=== PATIENT | male | born 1930 | race Caucasian/White ===

== ENCOUNTER → 2016-12-09 | Outpatient (CLI) | payer OTHER, MEDICARE ==
[~2016-12-09] MED LIST: ALFUZOSIN HYDRO10 MG PO; GOOD NEIGHBOR P20 M1 PO; LEVAQUIN500 MG PO; METHADONE 10 MG10 MG PO; PREDNISONE 20MG20 MG PO; SUCRALFATE 1GM T1 GM NG; ZESTRIL 20MG TA20 MG NG; ZITHROMAX 250M250 MG PO; ZITHROMAX Z PA250 MG PO
--- NOTE | 2016-12-09 12:21 | RADIOLOGY REPORT PS360 ---
UGI SERIES W/ AIR HISTORY: GERD ORDERING PHYSICIAN: DILAN ALVAREZ PATIENT AGE: 86 years COMPARISON: None FINDINGS: There is a small hiatal hernia which does not reduce during the course of exam. Surgical clips are present about the GE junction. The reflux was noted. No annular constricting lesion of the esophagus evident. No ulcer or mass apparent of the stomach. The antrum of the stomach is somewhat prominent. The duodenal sweep is also somewhat prominent. Decreased peristalsis noted at the antrum and duodenum. No duodenal bulb ulcer or mass. FLUOROSCOPY TIME : 2 minutes and 7 seconds. IMPRESSION: 1. Small hiatal hernia with GE reflux 2. No ulcer or mass evident. 3. Mild prominence of the antrum stomach and duodenum some decrease in peristalsis. This is of questionable clinical significance.
== END ==
LOC: RAD 12-02 11:00
DX: K21.9 Gastro-esophageal reflux disease without esophagitis (principal)

== ENCOUNTER 2017-06-09 20:47 | Emergency (ER) | payer OTHER, MEDICARE ==
[~2017-06-09] VITALS: Ht 172.7 cm; Wt 58.5 kg
[~2017-06-09 20:47] MED LIST changes: +BISOPROLOL 5MG T5 MG PO; +HYDROXYZINE HCL25 M1 PO; +LASIX20 MG PO; +TESSALON PERLE100 MG PO; +ZOFRAN ODT4 MG PO
--- NOTE | 2017-06-09 21:27 | Urgent Treatment Center Report ---
History of Present Issue Date/Time Seen by Provider 06/09/177 Visit Reason Pt arrived:Walked Presenting Problem:PT IS C/O COUGH FOR A COUPLE WEEKS Location if Accident: Onset of symptoms date/time:/ or onset unknown for:MEDICAL HX UNKNOWN Have you (or family members/close friends) recently traveled outside the [place]? N If Yes, where/when: Have you had exposure to infectious disease within the past month? TB? Other? Specify: Patient state that he has not been feeling well for several days State that he has had cough and congestion States that his throat is sore, nose is congested States that symptoms have continued to get worse over the last couple of weeks so he didn't want to wait until he had pneumonia so he came in to get checked ALLERGIES Coded Allergies: Penicillins (Mild, I-RASH 12/15/16) Home Medications Active Scripts Ondansetron (Zofran 4MG Odt) 4 MG PO Q6HP PRN NAUSEA AND VOMITING #20 TAB Prov: 03/23/17 BENZONATATE (Benzonatate) 100 MG PO TID #15 CAP Prov: 05/04/17 BISOPROLOL FUMARATE (Bisoprolol 5MG) 5 MG PO DAILY #30 TAB Prov: 02/15/17 Furosemide (Lasix) 20 MG PO DAILY #6 TAB Prov: 02/28/17 HYDROXYZINE HCL (Hydroxyzine HCl) 25 MG PO QHSP PRN sleep #5 CAP Prov: 05/13/17 Reported Medications Lisinopril (Zestril 20MG Tab) 20 MG NG DAILY ALFUZOSIN HCL (Alfuzosin HCl ER) 10 MG PO DAILY Methadone Hcl (Methadone) 10 MG PO TID Omeprazole 20 MG PO DAILY Sucralfate (Sucralfate 1GM Tablet) 1 GM NG ACHS History Medical History General CAD? No Angina: No [place]: Yes Hypertension? Yes Hyperlipidemia? Yes CHF? Yes DVT? No PE? No COPD? Yes Asthma? Yes Anemia? No GERD? Yes Gastric ulcers? Yes GI Bleed? No Hernia? No Thyroid Problems? No Hypothyroidism? No CVA? No Seizures? No Diabetes? No Renal Insuffiency? No UTI? No Stones? No BPH? Yes GB Disease: Yes Nephritic Syndrome? No Asplenia? No Hepatitis? No Sickle Cell Disease? No Arthritis? No Migraines? No Cataracts? Yes Glaucoma? No MRSA? No HIV? No TB? No Anxiety? No Depression? Yes Cancer? No More? No Immunization HX DT/Tetanus Unknown Flu Refused Pneumonia Refuses Surgical Hx Previous Surgery?Y GALLBLADDER TURP STOMACH CYST REMOVED FROM AXILLAR Family History Family HX Diabetes No CAD Yes Hypertension Yes Hyperlipidemia Yes Cancer No TB No Social History Smoking Hx Smoker: Current Every Day Smoker Tobacco: Yes Type Cigarettes Packs/day < 1 Pack Alcohol Alcohol: No Review of Systems All Other Systems Reviewed and Negative ENT nose discharge, nose congestion, throat pain, throat swelling. Respiratory cough Physical Exam Vital Signs Vital Signs Date Time Temp Pulse Resp B/P Pulse O2 O2 Flow FiO2 Ox Delivery Rate 06/09 2054 97.9 70 20 138/77 98 General Appearance normal appearance, WD/WN, no apparent distress Ear, Nose, Throat sinus pain/drainage, nasal congestion, throat irritated, slightly red Respiratory Status Yes: trachea midline, chest symmetrical. No: respiratory distress. 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 No Results/Orders Orders Procedure Date/time Status CHEST(2 VIEWS-NOT PORTABLE) 06/09 2101 Active XRAY/CT/US XRAY/CT/US XRAY chest XR interpretation by reviewed by me Xray Results no infiltrates, no acute changes Progress [facility] Progress Notes Date 06/09/17 Time 2203 Comment Consulted with pharmacy (Alex) about medication to treat upper respiratory infection and agreed Azithromycin Departure Departure Time of Disposition 2149 Disposition DC Home or Self Care(routine) Clinical Impression Primary Impression: Upper respiratory infection Qualifiers: URI type: unspecified URI Qualified Code: J06.9 - Acute upper respiratory infection, unspecified Condition STABLE Referrals Eugene VÁZQUEZ,Kike Nunes (Family) Patient Instructions Cough, DI for Cough -- Adult Additional Instructions Hard to eat, drink, or sleep with nasal congestion so important to keep nose cleaned out. * Monitor Temp. Tylenol and/or Ibuprofen as needed. ER if fever is no less than 101 despite alternating Tylenol and Ibuprofen * Encourage fluids, water, Gatorade, powerade, pedialyte if /toddler/or child * Warm salt water gargles for throat irritation *Warm fluids *Sore throat lozenges *Sleep elevated *humidifier or vaporizer *Flonase 2 sprays each nostril daily but may take 2-3 days to notice improvement with it Follow up IMMEDIATELY for new or worsening of symptoms OR no noticeable improvement over the next 48-72 hours. 911 immediately for any life threatening symptoms such as chest pain or difficulty breathing Discharge Counseling Counseled pt/family regarding diagnosis, test results, home care, follow up needs Prescriptions Current Visit Scripts Fluticasone Propionate (Flonase 50 Mcg Nasal [place]) 2 SPRAY NA DAILY #1 BOT Azithromycin (Zithromycin (Z-MARYLIN) 250MG Tab) 250 MG PO DAILY #6 TAB TAKE TWO (2) TABLETS ON DAY 1, THEN ONE (1) TABLET DAY #2 THRU #5 at 2205
--- NOTE | 2017-06-09 21:27 | Urgent Treatment Center Report ---
History of Present Issue Date/Time Seen by Provider 06/09/175 Visit Reason Pt arrived:Walked Presenting Problem:PT IS C/O COUGH FOR A COUPLE WEEKS Location if Accident: Onset of symptoms date/time:/ or onset unknown for:MEDICAL HX UNKNOWN Have you (or family members/close friends) recently traveled outside the [place]? N If Yes, where/when: Have you had exposure to infectious disease within the past month? TB? Other? Specify: Patient state that he has not been feeling well for several days State that he has had cough and congestion States that his throat is sore, nose is congested States that symptoms have continued to get worse over the last couple of weeks so he didn't want to wait until he had pneumonia so he came in to get checked ALLERGIES Coded Allergies: Penicillins (Mild, I-RASH 12/15/16) Home Medications Active Scripts Ondansetron (Zofran 4MG Odt) 4 MG PO Q6HP PRN NAUSEA AND VOMITING #20 TAB Prov: 03/23/17 BENZONATATE (Benzonatate) 100 MG PO TID #15 CAP Prov: 05/04/17 BISOPROLOL FUMARATE (Bisoprolol 5MG) 5 MG PO DAILY #30 TAB Prov: 02/15/17 Furosemide (Lasix) 20 MG PO DAILY #6 TAB Prov: 02/28/17 HYDROXYZINE HCL (Hydroxyzine HCl) 25 MG PO QHSP PRN sleep #5 CAP Prov: 05/13/17 Reported Medications Lisinopril (Zestril 20MG Tab) 20 MG NG DAILY ALFUZOSIN HCL (Alfuzosin HCl ER) 10 MG PO DAILY Methadone Hcl (Methadone) 10 MG PO TID Omeprazole 20 MG PO DAILY Sucralfate (Sucralfate 1GM Tablet) 1 GM NG ACHS History Medical History General CAD? No Angina: No CT: Yes Hypertension? Yes Hyperlipidemia? Yes CHF? Yes DVT? No PE? No COPD? Yes Asthma? Yes Anemia? No GERD? Yes Gastric ulcers? Yes GI Bleed? No Hernia? No Thyroid Problems? No Hypothyroidism? No CVA? No Seizures? No Diabetes? No Renal Insuffiency? No UTI? No Stones? No BPH? Yes GB Disease: Yes Nephritic Syndrome? No Asplenia? No Hepatitis? No Sickle Cell Disease? No Arthritis? No Migraines? No Cataracts? Yes Glaucoma? No MRSA? No HIV? No TB? No Anxiety? No Depression? Yes Cancer? No More? No Immunization HX DT/Tetanus Unknown Flu Refused Pneumonia Refuses Surgical Hx Previous Surgery?Y GALLBLADDER TURP STOMACH CYST REMOVED FROM AXILLAR Family History Family HX Diabetes No CAD Yes Hypertension Yes Hyperlipidemia Yes Cancer No TB No Social History Smoking Hx Smoker: Current Every Day Smoker Tobacco: Yes Type Cigarettes Packs/day < 1 Pack Alcohol Alcohol: No Review of Systems All Other Systems Reviewed and Negative ENT nose discharge, nose congestion, throat pain, throat swelling. Respiratory cough Physical Exam Vital Signs Vital Signs Date Time Temp Pulse Resp B/P Pulse O2 O2 Flow FiO2 Ox Delivery Rate 06/09 2054 97.9 70 20 138/77 98 General Appearance normal appearance, WD/WN, no apparent distress Ear, Nose, Throat sinus pain/drainage, nasal congestion, throat irritated, slightly red Respiratory Status Yes: trachea midline, chest symmetrical. No: respiratory distress. 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 No Results/Orders Orders Procedure Date/time Status CHEST(2 VIEWS-NOT PORTABLE) 06/09 2101 Active XRAY/CT/US XRAY/CT/US XRAY chest XR interpretation by reviewed by me Xray Results no infiltrates, no acute changes Progress [facility] Progress Notes Date 06/09/17 Time 2203 Comment Consulted with pharmacy (Alex) about medication to treat upper respiratory infection and agreed Azithromycin Departure Departure Time of Disposition 2149 Disposition DC Home or Self Care(routine) Clinical Impression Primary Impression: Upper respiratory infection Qualifiers: URI type: unspecified URI Qualified Code: J06.9 - Acute upper respiratory infection, unspecified Condition STABLE Referrals Eugene VÁZQUEZ,Kike Nunes (Family) Patient Instructions Cough, DI for Cough -- Adult Additional Instructions Hard to eat, drink, or sleep with nasal congestion so important to keep nose cleaned out. * Monitor Temp. Tylenol and/or Ibuprofen as needed. ER if fever is no less than 101 despite alternating Tylenol and Ibuprofen * Encourage fluids, water, Gatorade, powerade, pedialyte if /toddler/or child * Warm salt water gargles for throat irritation *Warm fluids *Sore throat lozenges *Sleep elevated *humidifier or vaporizer *Flonase 2 sprays each nostril daily but may take 2-3 days to notice improvement with it Follow up IMMEDIATELY for new or worsening of symptoms OR no noticeable improvement over the next 48-72 hours. 911 immediately for any life threatening symptoms such as chest pain or difficulty breathing Discharge Counseling Counseled pt/family regarding diagnosis, test results, home care, follow up needs Prescriptions Current Visit Scripts Fluticasone Propionate (Flonase 50 Mcg Nasal [place]) 2 SPRAY NA DAILY #1 BOT Azithromycin (Zithromycin (Z-MARYLIN) 250MG Tab) 250 MG PO DAILY #6 TAB TAKE TWO (2) TABLETS ON DAY 1, THEN ONE (1) TABLET DAY #2 THRU #5 at 2205
--- OUTSIDE RECORDS SUMMARY | 2017-06-09 21:51 | External Medical Summary Rpt ---
Author Author [employer], [employer] Organization [employer] Address Unknown Phone Unavailable Results Natriutietic peptide B [Mass/volume] in Serum or Plasma Observa Value Referen Units Interpr Notes Date tion ce etation Range Natriutie 0 - 100 pg/mL High No May 04 tic 2016 peptide B on in 10:00 PM source [Mass/vol data ume] in Serum or Plasma Lactate [Moles/volume] in Blood Observa Value Referen Units Interpr Notes Date ti ce etation Range Lactate 0.4 - 2.0 mmol/L Normal No May 04 [Moles/vo 2016 lume] in on in 10:00 PM Blood source data CBC W Auto Differential panel in Blood Observa Value Referen Units Interpr Notes Date ti ce etation Range Basophils 0 - 0.2 K/MM3 Normal No May 042016 [#/volume on in 10:00 PM ] in source Blood by data Automated count Basophils 0.1 - 2.0 % Normal No May 042016 leukocyte on in 10:00 PM s in source Blood by data Automated count Eosinophi 0.0 - 0.4 K/mm3 Normal No May 04 ls 2016 [#/volume on in 10:00 PM ] in source Blood by data Automated count Eosinophi 0.1 - % Normal No May 04 ls/100 12.0 2016 leukocyte on in 10:00 PM s in source Blood by data Automated count Granulocy 1.3 - 8.0 K/mm3 Normal No May 04 brit[place] 2016 [#/volume on in 10:00 PM ] in source Blood by data Automated count Granulocy 37.0 - % Normal No May 04 brit[place]/100 80.0 2016 leukocyte on in 10:00 PM s in source Blood by data Automated count Hematocri 42.0 - % Low No May 04 t [Volume 52.0 2016 on in 10:00 PM Fraction] source of Blood data Hemoglobi 14.1 - g/dL Low No May 04 n 18.0 informati 2016 [Mass/vol on in 10:00 PM ume] in source Blood data Lymphocyt 0.7 - 4.5 K/mm3 Normal No May 04 es informati 2016 [#/volume on in 10:00 PM ] in source Unspecifi data ed specimen by Automated count Lymphocyt 10 - 50 % Normal No May 04 es inform2016 [#/volume on in 10:00 PM ] in source Unspecifi data ed specimen by Automated count Erythrocy 27 - 31.2 pg Normal No May 04 te mean inform2016 corpuscul on in 10:00 PM ar source hemoglobi data n [Entitic mass] Erythrocy 31.8 - g/dl Normal No May 04 te mean 35.4 inform2016 corpuscul on in 10:00 PM ar source hemoglobi data n concentra tion [Mass/vol ume] by Automated count Erythrocy 82.2 - fl Normal No May 04 te mean 97.8 inform2016 corpuscul on in 10:00 PM ar volume source [Entitic data volume] by Automated count Monocytes 0.1 - 1.0 K/mm3 Normal No May 04 inform2016 [#/volume on in 10:00 PM ] in source Blood by data Automated count Monocytes 1.7 - 9.3 % Normal No May 04 /2016 leukocyte on in 10:00 PM s in source Blood by data Automated count Platelet 7.4 - fl Low No May 04 mean 10.4 informati 2016 volume on in 10:00 PM [Entitic source volume] data in Blood by Automated count Platelets 142 - 424 K/mm3 Normal No May 04 informati 2016 [#/volume on in 10:00 PM ] in source Blood data Erythrocy 4.6 - 6.2 M/mm3 Low No May 04 britany informati 2016 [#/volume on in 10:00 PM ] in source Amniotic data fluid Erythrocy 11.5 - % Normal No May 04 te 17.5 informati 2016 distribut on in 10:00 PM ion width source [Entitic data volume] by Automated count Leukocyte 4.8 - K/MM3 Normal No May 04 s 10.8 informati 2016 [#/volume on in 10:00 PM ] in source Blood data
--- OUTSIDE RECORDS SUMMARY | 2017-06-09 21:51 | External Medical Summary Rpt ---
Demographics Preferred Language Mosotho Marital Status Unknown Confucianism Affiliation Unknown Race Unknown Ethnic Group Unknown Author Author VICTOR MANUEL Address Unknown Phone victor Immunization No patient found.
--- OUTSIDE RECORDS SUMMARY | 2017-06-09 21:51 | External Medical Summary Rpt ---
Demographics Preferred Language [place] Marital Status Unknown Latter Day Affiliation Unknown Race Unknown Ethnic Group Unknown Author Author VICTOR MANUEL Address Unknown Phone victor Immunization No patient found.
--- OUTSIDE RECORDS SUMMARY | 2017-06-09 21:51 | External Medical Summary Rpt ---
Author Author , VICTOR MANUEL BERNAL Address Unknown Phone victor [email or web address] Purpose Continuity of Care Document - 05-04-2017 through 2016 Problems Code Diagnosis DOS Provider Status F32.9 MAJOR DEPRESSIVE DISORDER, SINGLE EPISODE, UNSPECIFIED G47.00 INSOMNIA, UNSPECIFIED I48.91 UNSPECIFIED ATRIAL FIBRILLATIO N J20.9 ACUTE BRONCHITIS, UNSPECIFIED J44.1 CHRONIC OBSTRUCTIVE PULMONARY DISEASE W (ACUTE) EXACERBATIO N N28.9 DISORDER OF KIDNEY AND URETER, UNSPECIFIED R06.00 DYSPNEA, UNSPECIFIED R10.9 UNSPECIFIED ABDOMINAL PAIN R74.8 ABNORMAL LEVELS OF OTHER SERUM ENZYMES R79.89 OTHER SPECIFIED ABNORMAL FINDINGS OF BLOOD CHEMISTRY Z03.89 ENCNTR FOR OBS FOR OTH SUSPECTED DISEASES AND COND RULED OUT
--- OUTSIDE RECORDS SUMMARY | 2017-06-09 21:51 | External Medical Summary Rpt ---
Author Author , VICTOR MANUEL BERNAL Address Unknown Phone victor [email or web address] Purpose Continuity of Care Document - 05-04-2017 [...]
[2017-06-09] MEDS ORDERED: ZITHROMAX Z PA250 MG PO (22:04)
[2017-06-09] MEDS ORDERED: FLONASE 50 MCG16 GM (22:04)
[2017-06-09 22:06] VITALS: BP 138/77
--- NOTE | 2017-06-10 05:35 | RADIOLOGY REPORT PS360 ---
CHEST(2 VIEWS-NOT PORTABLE) HISTORY: Cough and congestion, smoker CONGESTION ORDERING PHYSICIAN: RONY GARCIA APRN PATIENT AGE: 87 years COMPARISON: 05/04/2017 FINDINGS: No evidence of CHF.. 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 There are scattered parenchymal opacities consistent with pulmonary fibrotic change and scattered pleural plaques. There is a small hiatal hernia.. No acute bony anomalies. IMPRESSION: 1. Overall no change in emphysema with pulmonary fibrosis. 2. No acute finding
== END 2017-06-09 22:07 | disposition home or self-care (01) ==
LOC: UTC 20:47
DX: J06.9 Acute upper respiratory infection, unspecified (principal); Z72.0 Tobacco use; K21.9 Gastro-esophageal reflux disease without esophagitis; J44.9 Chronic obstructive pulmonary disease, unspecified; I10 Essential (primary) hypertension

== ENCOUNTER 2017-08-06 16:24 | Emergency (ER) | payer OTHER, MEDICARE ==
[~2017-08-06] VITALS: Ht 172.7 cm; Wt 54.4 kg
[~2017-08-06 16:24] MED LIST changes: +FLONASE 50 MCG16 GM
--- NOTE | 2017-08-06 16:41 | Emergency Room Report ---
History of Present Illness Time Seen by [id number] Presenting Problem in Triage Pt arrived:Wheelchair Presenting Problem:SON ADVISES PT TOOK MEDICINE THAT CAME IN THE MAIL. MEDICINE WAS NARCAN AND HE USED IT NASALLY TWICE. PT UNAWARE OF WHAT THE MEDICINE WAS. PT ON PAIN MEDICATION ON DAILY BASIS Onset of symptoms date/time:/ or onset unknown for:MEDICAL HX UNKNOWN Treatment Prior to Arrival: [employer] Provided by: Sepsis Risk Assessment: Temp: 98.4 B/P: MAP: Pulse: 63 Resp: 16 Recent fever? N Clinical Suspician of Infection? N Mental Status: 1 - Regular (Normal Baseline) Sepsis Risk:Low Sepsis Risk Have you (or family members/close friends) recently traveled outside the [place]? N If Yes, where/when: Have you had exposure to infectious disease within the past month? N TB? Other? Specify: 87 years old meth[place] the [place] the [place] by mail. He used two inhalers in each nostril then he devloped a skin burning sensation and started shaking, was brought by his son who was under the impression that he is having drug overdose. The patient denies having chest pain abdominal pain nausea vomiting or diarrhea. He is shaking in the bed with no focal deficites. Source patient, RN notes reviewed, family (his son) Exam Limitations no limitations (and his age ), clinical condition ALLERGIES Coded Allergies: Penicillins (Mild, I-RASH 12/15/16) Home Medications Active Scripts Ondansetron (Zofran 4MG Odt) 4 MG PO Q6HP PRN NAUSEA AND VOMITING #20 TAB Prov: 03/23/17 Fluticasone Propionate (Flonase 50 Mcg Nasal [place]) 2 SPRAY NA DAILY #1 BOT Prov: 06/09/17 BENZONATATE (Benzonatate) 100 MG PO TID #15 CAP Prov: 05/04/17 BISOPROLOL FUMARATE (Bisoprolol 5MG) 5 MG PO DAILY #30 TAB Prov: 02/15/17 HYDROXYZINE HCL (Hydroxyzine HCl) 25 MG PO QHSP PRN sleep #5 CAP Prov: 05/13/17 Reported Medications Lisinopril (Zestril 20MG Tab) 20 MG NG DAILY ALFUZOSIN HCL (Alfuzosin HCl ER) 10 MG PO DAILY Methadone Hcl (Methadone) 10 MG PO TID Omeprazole 20 MG PO DAILY Sucralfate (Sucralfate 1GM Tablet) 1 GM NG ACHS History Medical History General CAD? No Angina: No [place]: Yes Hypertension? Yes Hyperlipidemia? Yes CHF? Yes DVT? No PE? No COPD? Yes Asthma? Yes Anemia? No GERD? Yes Gastric ulcers? Yes GI Bleed? No Hernia? No Thyroid Problems? No Hypothyroidism? No CVA? No Seizures? No Diabetes? No Renal Insuffiency? No End Stage Renal Disease? No UTI? No Stones? No BPH? Yes GB Disease: Yes Nephritic Syndrome? No Asplenia? No Hepatitis? No Sickle Cell Disease? No Arthritis? No Migraines? No Cataracts? Yes Glaucoma? No MRSA? No HIV? No TB? No Anxiety? No Depression? Yes Cancer? No More? No Immunization Hx DT/Tetanus Unknown Flu Refused Pneumonia Refuses Surgical Hx Previous Surgery?Y GALLBLADDER TURP STOMACH CYST REMOVED FROM [facility] Family History Family Hx Diabetes No CAD Yes Hypertension Yes Hyperlipidemia Yes Cancer No TB No Social History Smoking Hx Smoker: Current Every Day Smoker Tobacco: Yes Type Cigarettes Packs/day < 1 Pack Alcohol Alcohol: No Review of Systems All Other Systems Reviewed and Negative Constitutional see HPI (shakness) Eyes no symptoms reported ENT no symptoms reported. Respiratory no symptoms reported Cardiovascular no symptoms reported Gastrointestinal no symptoms reported Genitourinary no symptoms reported. Musculoskeletal no symptoms reported Skin no symptoms reported Psychiatric/Neurological no symptoms reported Physical Exam Vital Signs Vital Signs Date Time Temp Pulse Resp B/P Pulse O2 O2 Flow FiO2 Ox Delivery Rate 08/06 1914 102 22 134/76 96 08/06 1808 65 14 142/70 98 08/06 1657 14 08/06 1626 98.4 63 16 98 General Appearance mild distress Eye Exam - bilateral eye normal exam, bilateral eye PERRL, bilateral eye EOMI Ear, Nose, Throat hearing grossly normal, normal ENT inspection Neck normal inspection, non-tender, supple, full range of motion Respiratory Status Yes: trachea midline, chest symmetrical, non tender chest. No: respiratory distress. Lung Sounds bilateral: normal breath sounds, lungs clear. Cardiovascular normal exam, regular rate/rhythm, no peripheral edema, no gallop, no JVD, no murmur, no rub, normal peripheral pulses Peripheral Pulses Pulses normal Yes Gastrointestinal normal bowel sounds, normal exam, non tender, soft, no organomegaly Back normal inspection, no CVA tenderness, no vertebral tenderness Extremities non-tender, normal range of motion, normal inspection Male Genitalia normal genitalia, normal prostate, no hernia Neurologic alert, gas tender II-XII nml as tested, normal exam, oriented x 3 Skin intact, normal color, warm/dry Lymphatic no adenopathy Medical Decision Making LABS/Meds/Orders Pt receiving controlled substance in ED? No Results/Orders Laboratory Tests 08/06/17 1800: Opiates Screen NEGATIVE, Urine Methadone Screen NEGATIVE, Barbiturates NEGATIVE, Phencyclidine Screen NEGATIVE, Amphetamines Screen NEGATIVE, Benzodiazepines Screen NEGATIVE, Cocaine Screen NEGATIVE, Marijuana (THC) Screen NEGATIVE 08/06/17 1640: ABG pH 7.54 H, ABG pCO2 (Temp Corrct 24.5 L, ABG pO2 (Temp Correct 58.3 L, ABG HCO3 20.6 L, ABG Total CO2 21.3 L, ABG O2 Sat (Calculated) 93.4, ABG Base Excess -1.9, Brooks Test ACCEPTABLE, Blood Gas Comments RIGHT RADIAL, Sodium 139, Potassium 4.0, Chloride 105, Carbon Dioxide 28, BUN 23 H, Creatinine 1.4 H, Estimated Creat Clear 30 L, Estimated GFR (MDRD) 48, Glucose 148 H, Calcium 8.9, Total Bilirubin 0.4, AST 11 L, ALT 12, Alkaline Phosphatase 110, Creatine Kinase 45, CK-MB (CK-2) Rel Index 2.2, CK and CKMB Interp 1.0, Troponin I < 0.02 , Total Protein 8.0, Albumin 3.8, Globulin 4.2 H, Albumin/Globulin Ratio 0.9 L , WBC 5.3, RBC 4.28 L, Hgb 13.1 L, Hct 39.4 L, MCV 92.0, RDW 13.3, Plt Count 205, MPV 7.8, Gran % 68.7, Gran # 3.7, Lymphocytes % 21.4, Monocytes % 6.7, Eosinophils % 2.3, Basophils % 0.8, Lymphocytes # 1.1, Monocytes # 0.4, Eosinophils # 0.1, Basophils # 0.0, PUBS MCHC 33.1, MCH 30.5, Salicylates 3.0, Acetaminophen 0 L, Alcohols 0 Current Medication Orders Sig/Harshad Start time Last Medication Dose Route Stop Time Status Admin Morphine Sulfate 2 MG [id number] PRN 10/12 1700 AC 08/06 IV 1657 Sodium Chloride 1,000 ML [id number] 08/06 1700 DC 08/06 IV 08/06 1800 1657 Sodium Chloride 10 ML PRN PRN 08/06 1700 AC IV 08/07 1648 Orders Procedure Date/time Status [id number] FAT/LO CHO/HERBER 08/06 D Active OP COURTSEY MEAL 08/06 1812 Active ARTERIAL BLOOD GAS REQUEST 08/06 1631 Active 12 LEAD EKG-BESSON (INITIAL) 08/06 1628 Active ELECTROCARDIOGRAM REQUEST 08/06 1628 Active SALICYLATE 08/06 1628 Complete DRUG ABUSE SCREEN (10) 08/06 1628 Complete CBC WITH AUTO DIFF 08/06 1628 Complete CARDIAC ENZYMES 08/06 162 Complete CHEM 12 PROFILE 08/06 1628 Complete ALCOHOL 08/06 1628 Complete Acetaminophen 08/06 1628 Complete CM/EKG CM/EKG EKG sinus tachycardia 125 minutes baseline artifact nonspecific T-wave changes no acute findings Departure Departure Time of Disposition 1757 Disposition DC Home or Self Care(routine) Clinical Impression Primary Impression: Opiate withdrawal Secondary Impressions: COPD (chronic obstructive pulmonary disease), Misuse of drugs Condition STABLE Referrals Eugene VÁZQUEZ,Kike Nunes (Family) Additional Instructions The patien felt better and stopped shaking after 2 mg of morphine. He recieved 1 liter of IVF and urinated. He tolerated po intake. The patient was made aware that we do not have methadon in the hospital he had his 3 o clock dose and gave it to himself with no side effects. He was stable during his ED stay his case was discussed with Dr. Nunes who felt that he is stable enough to go home and continue his methadon at home. I discussed with his son to observe him and return is needed. The son verbalized understanding. Discharge Counseling Counseled pt/family regarding diagnosis, test results, home care, follow up needs ED Critical Care Critical Care No If Critical Care minutes are documented, the time involved in the performance of seperately reportable procedures was not counted toward critical care time documented. I directly delivered medical care to this critically ill and/or injured patient. Timely evaluation and treatment was necessary to address the significant organ system(s) dysfunction present in this patient. at 1919
[2017-08-06 16:50] LABS: ARTERIAL ABE -1.9 MMOL/L (-2.4-+2.3); ARTERIAL PO2 58.3 MMHG (80-100); ARTERIAL TCO2 21.3 MMOL/L (23-27)
[2017-08-06 16:51] LABS: ALLEN'S TEST ACCEPTABLE; OXYGEN ROOM AIR
[2017-08-06 17:03] LABS: LYMPH # 1.1 K/mm3 (0.7-4.5); LYMPH % 21.4 % (10-50)
[2017-08-06 17:10] LABS: HEMOGLOBIN 13.1 g/dL (14.1-18.0)
[2017-08-06 17:33] LABS: BUN 23 mg/dL (7-18)
[2017-08-06 17:35] LABS: GFR (ESTIMATED) 48 ML/MIN (>60)
[2017-08-06 18:42] LABS: AMPHETAMINES/METAMPHETAMINES NEGATIVE ng/mL (<1000)
[2017-08-06 20:01] VITALS: BP 134/76
--- OUTSIDE RECORDS SUMMARY | 2017-08-08 17:46 | External Medical Summary Rpt | CCD ---
Author Author VICTOR MANUEL Address Unknown Phone victor Purpose Continuity of Care Document - 05-04-2017 through 2016
--- OUTSIDE RECORDS SUMMARY | 2017-08-08 17:46 | External Medical Summary Rpt | CCD ---
Demographics Preferred Language [place] Marital Status Unknown Orthodoxy Affiliation Unknown Race Unknown Ethnic Group Unknown Author Author , DOLORES BERNAL Address Unknown Phone Immunization No patient found.
--- OUTSIDE RECORDS SUMMARY | 2017-08-08 17:46 | External Medical Summary Rpt ---
Author Author DOLORES Nolasco, [employer] Organization [employer] Address Unknown Phone Unavailable Results Fibrin D-dimer FEU [Mass/volume] in Platelet poor plasma Observa Value Referen Units Interpr Notes Date tion ce etation Range Fibrin 0 - 400 ng/mL High Jun 16 D-dimer alert NOTIFICAT 2017 5:35 FEU ION PM [Mass/vol RESULT ume] in The Platelet D-Dimer poor values plasma are presented in units of mass(ng/m L) ofD-Dimer units(DDU ).This test has been FDA approved as an aid in the assessmen tand evaluatio n of suspected DIC, and thromboem bolic eventsinc luding PE and DVT. However, it does not have approvalf or cut-off values for the exclusion of these condition s. Natriutietic peptide B [Mass/volume] in Serum or Plasma Observa Value Referen Units Interpr Notes Date tion ce etation Range Natriutie 0 - 100 pg/mL High No Jun 16 tic informati 2016 5:35 peptide B on in PM source [Mass/vol data ume] in Serum or Plasma CBC W Auto Differential panel in Blood Observa Value Referen Units Interpr Notes Date tion ce etation Range Basophils 0 - 0.2 K/MM3 Normal No Jun 16 informati 2016 5:35 [#/volume on in PM ] in source Blood by data Automated count Basophils 0.1 - 2.0 % Normal No Jun 16 informati 2016 5:35 leukocyte on in PM s in source Blood by data Automated count Eosinophi 0.0 - 0.4 K/mm3 Normal No Jun 16 ls informati 2016 5:35 [#/volume on in PM ] in source Blood by data Automated count Eosinophi 0.1 - % Normal No Jun 16 ls/100 12.0 informati 2016 5:35 leukocyte on in PM s in source Blood by data Automated count Granulocy 1.3 - 8.0 K/mm3 Normal No Jun 16 britany informati 2016 5:35 [#/volume on in PM ] in source Blood by data Automated count Granulocy 37.0 - % Normal No Jun 16 britany/100 80.0 informati 2016 5:35 leukocyte on in PM s in source Blood by data Automated count Hematocri 42.0 - % Low No Jun 16 t [Volume 52.0 ati 2016 5:35 on in PM Fraction] source of Blood data Hemoglobi 14.1 - g/dL Low No Jun 16 n 18.0 informati 2016 5:35 [Mass/vol on in PM ume] in source Blood data Lymphocyt 0.7 - 4.5 K/mm3 Normal No Jun 16 es informati 2017 5:35 [#/volume on in PM ] in source Unspecifi data ed specimen by Automated count Lymphocyt 10 - 50 % Normal No Jun 16 informati 2016 5:35 [#/volume on in PM ] in source Unspecifi data ed specimen by Automated count Erythrocy 27 - 31.2 pg Normal No Jun 16 te mean informati 2016 5:35 corpuscul on in PM ar source hemoglobi data n [Entitic mass] Erythrocy 31.8 - g/dl Normal No Jun 16 te mean 35.4 informati 2016 5:35 corpuscul on in PM ar source hemoglobi data n concentra tion [Mass/vol ume] by Automated count Erythrocy 82.2 - fl Normal No Jun 16 te mean 97.8 informati 2016 5:35 corpuscul on in PM ar volume source [Entitic data volume] by Automated count Monocytes 0.1 - 1.0 K/mm3 Normal No Jun 16 informati 2016 5:35 [#/volume on in PM ] in source Blood by data Automated count Monocytes 1.7 - 9.3 % Normal No Jun 16 /100 informati 2016 5:35 leukocyte on in PM s in source Blood by data Automated count Platelet 7.4 - fl Normal No Jun 16 mean 10.4 informati 2016 5:35 volume on in PM [Entitic source volume] data in Blood by Automated count Platelets 142 - 424 K/mm3 Normal No Jun 16 informati 2016 5:35 [#/volume on in PM ] in source Blood data Erythrocy 4.6 - 6.2 M/mm3 Low No Jun 16 britany informati 2016 5:35 [#/volume on in PM ] in source Amniotic data fluid Erythrocy 11.5 - % Normal No Jun 16 te 17.5 informati 2016 5:35 distribut on in PM ion width source [Entitic data volume] by Automated count Leukocyte 4.8 - K/MM3 Normal No Jun 16 s 10.8 inform2016 5:35 [#/volume on in PM ] in source Blood data Natriutietic peptide B [Mass/volume] in Serum or Plasma Observa Value Referen Units Interpr Notes Date tion ce etation Range Natriutie 0 - 100 pg/mL High No May 04 tic 2016 peptide B on in 10:00 PM source [Mass/vol data ume] in Serum or Plasma Lactate [Moles/volume] in Blood Observa Value Referen Units Interpr Notes Date tion ce etation Range Lactate 0.4 - 2.0 [...] 50 % Normal No May 04 es informati 2016 [...] Normal No May 04 te mean 97.8 informati 2016 corpuscul on in 10:00 PM ar volume source [Entitic data volume] by Automated count Monocytes 0.1 - 1.0 K/mm3 Normal No May 04 informati 2016 [...]
--- OUTSIDE RECORDS SUMMARY | 2017-08-08 17:46 | External Medical Summary Rpt | CCD ---
Author Author VICTOR MANUEL Address Unknown Phone victor [email or web address] Purpose Continuity of Care Document - 05-04-2017 through 2016
--- OUTSIDE RECORDS SUMMARY | 2017-08-08 17:46 | External Medical Summary Rpt ---
[...] - 8.0 K/mm3 Normal No May 04 britayn 2016 [#/volume on in 10:00 PM ] [...]
--- OUTSIDE RECORDS SUMMARY | 2017-08-08 17:46 | External Medical Summary Rpt | CCD ---
Demographics Preferred Language [place] Marital Status Unknown Orthodoxy Affiliation Unknown Race Unknown Ethnic Group Unknown Author Author , DOLORES BERNAL Address Unknown Phone Immunization No patient found.
== END 2017-08-06 20:02 | disposition home or self-care (01) ==
LOC: ER 16:24
PROVIDERS: Emergency Medicine
DX: F11.23 Opioid dependence with withdrawal (principal); T40.0X1A Poisoning by opium, accidental (unintentional), initial encounter; Y92.019 Unspecified place in single-family (private) house as the place of occurrence of the external cause; J44.9 Chronic obstructive pulmonary disease, unspecified; Z72.0 Tobacco use; K21.9 Gastro-esophageal reflux disease without esophagitis; I10 Essential (primary) hypertension; I50.9 Heart failure, unspecified; Z88.0 Allergy status to penicillin

== ENCOUNTER 2017-08-08 13:56 | Emergency (ER) | payer OTHER, MEDICARE ==
[~2017-08-08] VITALS: Ht 172.7 cm; Wt 54.4 kg
--- NOTE | 2017-08-08 14:52 | Urgent Treatment Center Report ---
History of Present Issue Date/Time Seen by Provider 08/08/17 4196 Visit Reason Pt arrived:Walked Presenting Problem:PT C/O FEELING NAUSEATED. HE ADVISES HE ACCIDENTALLY NARCANNED HIMSELD ON THURSDAY Location if Accident: Onset of symptoms date/time:/ or onset unknown for:MEDICAL HX UNKNOWN Have you (or family members/close friends) recently traveled outside the [place]? N If Yes, where/when: Have you had exposure to infectious disease within the past month? TB? Other? Specify: Source patient, family Exam Limitations no limitations Comment 87-year-old male presents with complaints of nausea and soreness in his chest. Patient states on [facility] and afterwards became very ill and was taken to the ER by family. Patient states he's been on methadone for over 15 years for chronic pain. Patient states he might have also taken an extra lisinopril because he forgot he took his other lisinopril this morning but not sure if he took it or not. ALLERGIES Coded Allergies: Penicillins (Mild, I-RASH 12/15/16) Home Medications Active Scripts Ondansetron (Zofran 4MG Odt) 4 MG PO Q6HP PRN NAUSEA AND VOMITING #20 TAB Prov: 03/23/17 Fluticasone Propionate (Flonase 50 Mcg Nasal [place]) 2 SPRAY NA DAILY #1 BOT Prov: 06/09/17 BENZONATATE (Benzonatate) 100 MG PO TID #15 CAP Prov: 05/04/17 BISOPROLOL FUMARATE (Bisoprolol 5MG) 5 MG PO DAILY #30 TAB Prov: 02/15/17 HYDROXYZINE HCL (Hydroxyzine HCl) 25 MG PO QHSP PRN sleep #5 CAP Prov: 05/13/17 Reported Medications Lisinopril (Zestril 20MG Tab) 20 MG NG DAILY ALFUZOSIN HCL (Alfuzosin HCl ER) 10 MG PO DAILY Methadone Hcl (Methadone) 10 MG PO TID Omeprazole 20 MG PO DAILY Sucralfate (Sucralfate 1GM Tablet) 1 GM NG ACHS History Medical History General CAD? No Angina: No [place]: Yes Hypertension? Yes Hyperlipidemia? Yes CHF? Yes DVT? No PE? No COPD? Yes Asthma? Yes Anemia? No GERD? Yes Gastric ulcers? Yes GI Bleed? No Hernia? No Thyroid Problems? No Hypothyroidism? No CVA? No Seizures? No Diabetes? No Renal Insuffiency? No UTI? No Stones? No BPH? Yes GB Disease: Yes Nephritic Syndrome? No Asplenia? No Hepatitis? No Sickle Cell Disease? No Arthritis? No Migraines? No Cataracts? Yes Glaucoma? No MRSA? No HIV? No TB? No Anxiety? No Depression? Yes Cancer? No More? No Immunization HX DT/Tetanus Unknown Flu Refused Pneumonia Refuses Surgical Hx Previous Surgery?Y GALLBLADDER TURP STOMACH CYST REMOVED FROM [facility] Family History Family HX Diabetes No CAD Yes Hypertension Yes Hyperlipidemia Yes Cancer No TB No Social History Smoking Hx Smoker: Current Every Day Smoker Tobacco: Yes Type Cigarettes Packs/day < 1 Pack Alcohol Alcohol: No Review of Systems All Other Systems Reviewed and Negative Gastrointestinal see HPI, nausea Genitourinary see HPI. Physical Exam Vital Signs Vital Signs Date Time Temp Pulse Resp B/P Pulse O2 O2 Flow FiO2 Ox Delivery Rate 08/08 1413 98.4 65 16 117/70 98 - WBC >12,000 or <4,000 or 10% bands? 2 or more SIRS Criteria Met? B/P:140/74 MAP:96 Creatinine >2.0? UA output<0.5ml/kg/hr for 2 hrs? Platelet count >100,000? Lactate >2.0mmol/1? INR >1.2 or PTT > than 60 sec? Evidence of Organ Dysfunction? Provider documented clinical suspician of infection? Sepsis Criteria Count: 0 Sepsis Risk: General Appearance normal appearance, no apparent distress Eye Exam - bilateral eye normal exam, bilateral eye PERRL, bilateral eye EOMI Ear, Nose, Throat hearing grossly normal, normal ENT inspection, normal pharynx Neck normal inspection, full range of motion, limited range of motion Respiratory Status Yes: trachea midline, chest symmetrical. No: respiratory distress. Lung Sounds bilateral: normal breath sounds, lungs clear. Cardiovascular normal exam, regular rate/rhythm Peripheral Pulses Pulses normal Yes Gastrointestinal normal bowel sounds, non tender, soft, no guarding, no rebound Neurologic alert, normal exam, oriented x 3 Medical Decision Making LABS/Meds/Orders Pt receiving controlled substance in ED? No Results/Orders Laboratory Tests 08/08/17 1530: Sodium 140, Potassium 4.0, Chloride 107, Carbon Dioxide 30, BUN 32 H, Creatinine 1.4 H, Estimated Creat Clear 30 L, Estimated GFR (MDRD) 48, Glucose 159 H, Calcium 8.2 L, Total Bilirubin 0.3, AST 14 L, ALT 10 L, Alkaline Phosphatase 85, Creatine Kinase 55, CK-MB (CK-2) Rel Index 2.0, CK and CKMB Interp 1.1, Troponin I < 0.02, Total Protein 6.8, Albumin 3.1 L, Globulin 3.7 H, Albumin/Globulin Ratio 0.8 L, WBC 5.2, RBC 3.66 L, Hgb 11.1 L, Hct 34.8 L , MCV 95.2, RDW 13.4, Plt Count 203, MPV 8.1, Gran % 73.3, Gran # 3.8, Lymphocytes % 17.5, Monocytes % 5.5, Eosinophils % 2.8, Basophils % 0.9, Lymphocytes # 0.9, Monocytes # 0.3, Eosinophils # 0.2, Basophils # 0.1, PUBS MCHC 32.1, MCH 30.5 Orders Procedure Date/time Status 12 LEAD EKG-BESSON (INITIAL) 08/08 1445 Active ELECTROCARDIOGRAM REQUEST 08/08 1445 Active CBC WITH AUTO DIFF 08/08 1445 Complete CARDIAC ENZYMES 08/08 1445 Complete CHEM 12 PROFILE 08/08 1445 Complete Progress [facility] Progress Notes Date 08/08/17 Time 1623 Comment Patient has had a soda and [place] while here and was able to keep both Down without nausea Departure Departure Time of Disposition 1624 Disposition DC Home or Self Care(routine) Clinical Impression Primary Impression: Nausea Condition STABLE Referrals Eugene VÁZQUEZ,Kike Nunes (Family) Patient Instructions DI for Nausea -- Adult Additional Instructions Laxmi diet and Advance as tolerated See PCP this week If symptoms worsen or do not improve return or be seen in the ER Discharge Counseling Counseled pt/family regarding diagnosis, test results, medications/RX, home care, follow up needs at [id number]
[2017-08-08 16:07] LABS: LYMPH # 0.9 K/mm3 (0.7-4.5); LYMPH % 17.5 % (10-50)
[2017-08-08 16:09] LABS: HEMOGLOBIN 11.1 g/dL (14.1-18.0)
[2017-08-08 16:17] LABS: BUN 32 mg/dL (7-18); GFR (ESTIMATED) 48 ML/MIN (>60)
[2017-08-08 16:29] VITALS: BP 143/83
--- OUTSIDE RECORDS SUMMARY | 2017-08-09 04:21 | External Medical Summary Rpt | CCD ---
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 OBSTRUCTIVE PULMON DISEASE W ACUTE LOWER RESP INFCT J44.1 CHRONIC OBSTRUCTIVE PULMONARY DISEASE W (ACUTE) EXACERBATIO N J44.9 CHRONIC OBSTRUCTIVE PULMONARY DISEASE, UNSPECIFIED N28.9 DISORDER OF KIDNEY AND URETER, UNSPECIFIED R06.00 DYSPNEA, UNSPECIFIED R07.89 OTHER CHEST PAIN R10.9 UNSPECIFIED ABDOMINAL PAIN R74.8 ABNORMAL LEVELS OF OTHER SERUM ENZYMES R79.89 OTHER SPECIFIED ABNORMAL FINDINGS OF BLOOD CHEMISTRY Z03.89 ENCNTR FOR OBS FOR OTH SUSPECTED DISEASES AND COND RULED OUT Results Labs Lab Lab Date Result Refere Interp Status Commen Order Detail nces retati t Range on Urine 9-analyte drugs of abuse screening (08-06-2017 18:00) Comment: Positive urine drug screen samples are stored for 7 days. Comment: Contact the Lab if confirmation of positives is needed. 11-hydr NEGATIV <50 complet oxy 017 E ed delta-9 18:00 NEGATIV E L tetrahy ng/mL drocann abinol Phencyc = <25 complet lidine 017 NEGATIV ed measure 18:00 E ng/mL ment (mass/v olume) Opiates = <300 complet 017 NEGATIV ed measure 18:00 E ng/mL ment (mass/v olume) Methado = <300 complet ne 017 NEGATIV ed measure 18:00 E ng/mL ment (mass/v olume) Cocaine = <300 complet 017 NEGATIV ed measure 18:00 E ng/g ment (mass/v olume) Serum = 200 complet or 017 NEGATIV ng/mL ed plasma 18:00 E ng/mL benzodi azepine s measure m Urine = <200 complet barbitu 017 NEGATIV ed rates 18:00 E ng/mL measure ment by screen Urine NEGATIV <1000 complet ampheta 017 E ed mine 18:00 NEGATIV screeni E L ng test ng/mL Arterial blood gas (08-06-2017 16:40) Arteria - 1.9 -2.4-+2 complet l blood 017 MMOL/L .3 ed base 16:40 excess determi nation [facility] ACCEPTA complet test 017 BLE ed before 16:40 ACCEPTA arteria BLE L l blood gas Arteria = 20.6 22.0-26 complet l blood 017 MMOL/L .0 ed 16:40 bicarbo jatin measure ment ( Arteria = ROOM complet l blood 017 AIR ed total 16:40 oxygen content yvon Arteria = 24.5 35.0-45 complet l blood 017 MMHG .0 ed 16:40 partial pressur e of carbo Arteria = 7.54 7.35-7. complet l blood 017 MMOL/L 45 ed pH 16:40 measure ment Arteria = 58.3 80-100 complet l whole 017 MMHG ed blood 16:40 PO2 at POC Arteria = 93.4 90-100 complet l blood 017 % ed oxygen 16:40 saturat ion calcula SOURCE RIGHT complet 017 RADIAL ed 16:40 Arteria = 21.3 23-27 complet l blood 017 MMOL/L ed carbon 16:40 dioxide , total greyson CBC w auto diff (08-06-2017 16:40) Blood = 5.3 4.8-10. complet leukocy 017 K/MM3 8 ed britany 16:40 count (number /volume ) Automat = 13.3 11.5-17 complet ed 017 % .5 ed erythro 16:40 cyte distrib ution width Red = 4.28 4.6-6.2 complet blood 017 M/mm3 ed cell 16:40 count Blood = 205 142-424 complet platele 017 K/mm3 ed t count 16:40 Automat = 7.8 7.4-10. complet ed 017 fl 4 ed blood 16:40 platele t mean volume greyson [place] % = 6.7 % 1.7-9.3 complet 017 ed 16:40 Absolut = 0.4 0.1-1.0 complet e 017 K/mm3 ed monocyt 16:40 e count Automat = 92.0 82.2-97 complet ed 017 fl .8 ed erythro 16:40 cyte mean corpusc ular v Automat = 33.1 31.8-35 complet ed 017 g/dl .4 ed erythro 16:40 cyte mean corpusc ular h Mean = 30.5 27-31.2 complet corpusc 017 pg ed ular 16:40 hemoglo bin (MCH) determ Lymphoc = 21.4 10-50 complet yte 017 % ed count, 16:40 blood, automat ed Absolut = 1.1 0.7-4.5 complet e 017 K/mm3 ed lymphoc 16:40 yte count Blood = 13.1 14.1-18 complet hemoglo 017 g/dL .0 ed bin 16:40 measure ment (mass/v olum Blood = 39.4 42.0-52 complet hematoc 017 % .0 ed rit 16:40 (volume fractio n) Granulo = 68.7 37.0-80 complet cyte 017 % .0 ed percent 16:40 age Blood = 3.7 1.3-8.0 complet granulo 017 K/mm3 ed cytes 16:40 automat ed count (numb Automat = 2.3 % 0.1-12. complet ed 017 0 ed blood 16:40 eosinop hils/10 0 leukocy t Automat = 0.1 0.0-0.4 complet ed 017 K/mm3 ed blood 16:40 eosinop hil count Baso % = 0.8 % 0.1-2.0 complet 017 ed 16:40 Automat = 0.0 0-0.2 complet ed 017 K/MM3 ed blood 16:40 basophi l count (count/ vo Salicylate ser/plas (08-06-2017 16:40) Salicyl = 3.0 2.8-20. complet ate 017 mg/dL 0 ed ser/ramona 16:40 s Comprehensive metabolic panel (08-06-2017 16:40) Protein = 8.0 6.4-8.2 complet total 017 gm/dL ed ser/ramona 16:40 s ALT = 12 12-78 complet (SGPT) 017 U/L ed ser/ramona 16:40 s Serum = 11 15-37 complet or 017 U/L ed plasma 16:40 asparta te aminotr ansfera Serum = 139 136-145 complet sodium 017 mmoL/L ed measure 16:40 ment Serum = 4.0 3.5-5.1 complet potassi 017 mmoL/L ed um 16:40 measure ment Serum = 148 74-106 complet or 017 mg/dL ed plasma 16:40 glucose measure ment (mas Serum = 4.2 1.3-3.2 complet globuli 017 gm/dL ed n 16:40 measure ment (mass/v olume) Estimat = 48 >60 complet ed 017 ML/MIN ed glomeru 16:40 lar filtrat ion rate (GF Comment: REFERENCE RANGE: >60 ML/MIN/1.73 SQUARE METERS Comment: If this patient is -[place], then multiply the Comment: result by 1.210. Estimat = 30 50-200 complet ion of 017 ML/MIN ed creatin 16:40 ine renal clearan ce Serum = 1.4 0.70-1. complet or 017 mg/dL 30 ed plasma 16:40 creatin ine measure ment ( Carbon 10-12-2 = 28 21.0-32 complet dioxide 017 mmoL/L .0 ed 16:40 measure ment Serum = 105 98-107 complet or 017 mmoL/L ed plasma 16:40 chlorid e measure ment (mo Serum = 8.9 8.5-10. complet or 017 mg/dL 1 ed plasma 16:40 calcium measure ment (mas Serum = 23 7-18 complet or 017 mg/dL ed plasma 16:40 urea nitroge n measure men Serum = 0.4 0.2-1.0 complet or 017 mg/dL ed plasma 16:40 total bilirub in measure m Serum = 110 46-116 complet or 017 U/L ed plasma 16:40 alkalin e phospha tase greyson Serum = 3.8 3.4-5.0 complet or 017 gm/dL ed plasma 16:40 albumin measure ment (mas Serum = 0.9 1.1-1.8 complet or 017 ed plasma 16:40 albumin /globul in mass ra Cardiac enzymes (08-06-2017 16:40) Serum < 0.02 0.00-0. complet or 017 ng/mL 06 ed plasma 16:40 troponi n i.cardi ac measu Serum = 45 39-308 complet or 017 U/L ed plasma 16:40 creatin e kinase measure m Serum = 1.0 0.0-3.6 complet or 017 ng/mL ed plasma 16:40 creatin e kinase MB measu Serum = 2.2 0-4.0 complet or 017 U/L ed plasma 16:40 creatin e kinase MB (CK-M Serum or plasma ethanol measurement ([facility] (08-06-2017 16:40) Serum = 0 0-99 complet or 017 mg/dL ed plasma 16:40 ethanol measure ment ([facility] Comment: ANY ALCOHOL > OR = 80 MG/DL IS CONSIDERED LEGALLY Comment: INTOXICATED UNDER [facility] LAW. Acetaminophen level (mass/volume) (08-06-2017 16:40) Acetami = 0 10-30 complet nophen 017 ug/mL ed level 16:40 (mass/v olume)
--- OUTSIDE RECORDS SUMMARY | 2017-08-09 04:21 | External Medical Summary Rpt | CCD ---
Author Author , DOLORES Organization DOLORES Address Unknown Phone [email or web address] Purpose Continuity of Care Document - 08-06-2017 [...] blood 16:40 platele t mean volume greyson [place] % = 6.7 % 1.7-9.3 complet 017 [...] SQUARE METERS Comment: If this patient is -Malawian, then multiply the Comment: result by 1.210. [...] MB (CK-M Serum or plasma ethanol measurement ([facility] (08-06-2017 16:40) Serum = 0 0-99 complet or 017 mg/dL ed plasma 16:40 ethanol measure ment ([facility] Comment: ANY ALCOHOL > OR = 80 MG/DL IS CONSIDERED LEGALLY Comment: INTOXICATED UNDER [facility] LAW. Acetaminophen level (mass/volume) (08-06-2017 16:40) Acetami = 0 10-30 complet nophen 017 ug/mL ed level 16:40 (mass/v olume)
--- OUTSIDE RECORDS SUMMARY | 2017-08-09 04:22 | External Medical Summary Rpt | CCD ---
Demographics Preferred Language Icelandic Marital Status Unknown Orthodoxy Affiliation Unknown Race Unknown Ethnic Group Unknown Author Author , DOLORES BERNAL Address Unknown Phone Immunization No patient found.
--- OUTSIDE RECORDS SUMMARY | 2017-08-09 04:22 | External Medical Summary Rpt | CCD ---
Demographics Preferred Language Malay Marital Status Unknown Taoism Affiliation Unknown Race Unknown Ethnic Group Unknown Author Author , DOLORES BERNAL Address Unknown Phone Immunization No patient found.
== END 2017-08-08 16:29 | disposition home or self-care (01) ==
LOC: UTC 13:56
PROVIDERS: Nurse Practitioner Family
DX: R11.0 Nausea (principal); I10 Essential (primary) hypertension; J44.9 Chronic obstructive pulmonary disease, unspecified; K21.9 Gastro-esophageal reflux disease without esophagitis; F17.210 Nicotine dependence, cigarettes, uncomplicated

== ENCOUNTER 2017-08-10 14:58 | Emergency (ER) | payer OTHER, MEDICARE ==
[~2017-08-10] VITALS: Ht 172.7 cm; Wt 59.0 kg
--- OUTSIDE RECORDS SUMMARY | 2017-08-10 15:04 | External Medical Summary Rpt | CCD ---
Demographics Preferred Language Kazakh Marital Status Unknown Faith Affiliation Unknown Race Unknown Ethnic Group Unknown Author Author , DOLORES BERNAL Address Unknown Phone Immunization No patient found.
--- OUTSIDE RECORDS SUMMARY | 2017-08-10 15:04 | External Medical Summary Rpt | CCD ---
Author Author , DOLORES Organization DOLORES Address Unknown Phone [email or web address] Purpose Continuity of Care Document - 05-04-2017 [...] Order Detail nces retati t Range on CBC w auto diff (08-08-2017 15:30) Automat = 0.1 0-0.2 complet ed 017 K/MM3 ed blood 15:30 basophi l count (count/ vo Baso % = 0.9 % 0.1-2.0 complet 017 ed 15:30 Automat = 0.2 0.0-0.4 complet ed 017 K/mm3 ed blood 15:30 eosinop hil count Automat = 2.8 % 0.1-12. complet ed 017 0 ed blood 15:30 eosinop hils/10 0 leukocy t Blood = 3.8 1.3-8.0 complet granulo 017 K/mm3 ed cytes 15:30 automat ed count (numb Granulo = 73.3 37.0-80 complet cyte 017 % .0 ed percent 15:30 age Blood = 34.8 42.0-52 complet hematoc 017 % .0 ed rit 15:30 (volume fractio n) Blood = 11.1 14.1-18 complet hemoglo 017 g/dL .0 ed bin 15:30 measure ment (mass/v olum Absolut = 0.9 0.7-4.5 complet e 017 K/mm3 ed lymphoc 15:30 yte count Lymphoc = 17.5 10-50 complet yte 017 % ed count, 15:30 blood, automat ed Mean = 30.5 27-31.2 complet corpusc 017 pg ed ular 15:30 hemoglo bin (MCH) determ Automat = 32.1 31.8-35 complet ed 017 g/dl .4 ed erythro 15:30 cyte mean corpusc ular h Automat = 95.2 82.2-97 complet ed 017 fl .8 ed erythro 15:30 cyte mean corpusc ular v Absolut = 0.3 0.1-1.0 complet e 017 K/mm3 ed monocyt 15:30 e count Isabella % = 5.5 % 1.7-9.3 complet 017 ed 15:30 Automat = 8.1 7.4-10. complet ed 017 fl 4 ed blood 15:30 platele t mean volume greyson Blood = 203 142-424 complet platele 017 K/mm3 ed t count 15:30 Red = 3.66 4.6-6.2 complet blood 017 M/mm3 ed cell 15:30 count Automat = 13.4 11.5-17 complet ed 017 % .5 ed erythro 15:30 cyte distrib ution width Blood = 5.2 4.8-10. complet leukocy 017 K/MM3 8 ed britany 15:30 count (number /volume ) Comprehensive metabolic panel (08-08-2017 15:30) Protein = 6.8 6.4-8.2 complet total 017 gm/dL ed ser/ramona 15:30 s ALT = 10 12-78 complet (SGPT) 017 U/L ed ser/ramona 15:30 s Serum = 14 15-37 complet or 017 U/L ed plasma 15:30 asparta te aminotr ansfera Serum = 140 136-145 complet sodium 017 mmoL/L ed measure 15:30 ment Serum = 4.0 3.5-5.1 complet potassi 017 mmoL/L ed um 15:30 measure ment Serum = 159 74-106 complet or 017 mg/dL ed plasma 15:30 glucose measure ment (mas Serum = 3.7 1.3-3.2 complet globuli 017 gm/dL ed n 15:30 measure ment (mass/v olume) Estimat = 48 >60 complet ed 017 ML/MIN ed glomeru 15:30 lar filtrat ion rate (GF Comment: REFERENCE RANGE: >60 ML/MIN/1.73 SQUARE METERS Comment: If this patient is -[place], then multiply the Comment: result by 1.210. Estimat = 30 50-200 complet ion of 017 ML/MIN ed creatin 15:30 ine renal clearan ce Serum = 1.4 0.70-1. complet or 017 mg/dL 30 ed plasma 15:30 creatin ine measure ment ( Carbon = 30 21.0-32 complet dioxide 017 mmoL/L .0 ed 15:30 measure ment Serum = 107 98-107 complet or 017 mmoL/L ed plasma 15:30 chlorid e measure ment (mo Serum = 8.2 8.5-10. complet or 017 mg/dL 1 ed plasma 15:30 calcium measure ment (mas Serum = 32 7-18 complet or 017 mg/dL ed plasma 15:30 urea nitroge n measure men Serum = 0.3 0.2-1.0 complet or 017 mg/dL ed plasma 15:30 total bilirub in measure m Serum = 85 46-116 complet or 017 U/L ed plasma 15:30 alkalin e phospha tase greyson Serum = 3.1 3.4-5.0 complet or 017 gm/dL ed plasma 15:30 albumin measure ment (mas Serum = 0.8 1.1-1.8 complet or 017 ed plasma 15:30 albumin /globul in mass ra Cardiac enzymes (08-08-2017 15:30) Serum < 0.02 0.00-0. complet or 017 ng/mL 06 ed plasma 15:30 troponi n i.cardi ac measu Serum = 55 39-308 complet or 017 U/L ed plasma 15:30 creatin e kinase measure m Serum = 1.1 0.0-3.6 complet or 017 ng/mL ed plasma 15:30 creatin e kinase MB measu Serum = 2.0 0-4.0 complet or 017 U/L ed plasma 15:30 creatin e kinase MB (CK-M Urine 9-analyte drugs of abuse screening (08-06-2017 [...] NEGATIV screeni E L ng test ng/mL Drugs identified in Urine by Screen method (08-06-2017 18:00) Ampheta NEGATIV <1000 complet mine 017 E ed [Presen 18:00 ce] in Urine by Screen method 11-Hydr NEGATIV <50 complet oxy 017 E ed delta-9 18:00 tetrahy drocann abinol [Presen ce] in Unspeci fied specime n Arterial blood gas (08-06-2017 16:40) Arteria = 21.3 23-27 complet l blood 017 MMOL/L ed carbon 16:40 dioxide , total greyson SOURCE RIGHT complet 017 RADIAL ed 16:40 Arteria = 93.4 90-100 complet l blood 017 % ed oxygen 16:40 saturat ion calcula Arteria = 58.3 80-100 complet l whole 017 MMHG ed blood 16:40 PO2 at POC Arteria = 7.54 7.35-7. complet l blood 017 MMOL/L 45 ed pH 16:40 measure ment Arteria = 24.5 35.0-45 complet l blood 017 MMHG .0 ed 16:40 partial pressur e of carbo Arteria = ROOM complet l blood 017 AIR ed total 16:40 oxygen content yvon Arteria = 20.6 22.0-26 complet l blood 017 MMOL/L .0 ed 16:40 bicarbo jatin measure ment ( [facility] ACCEPTA complet test 017 BLE ed before 16:40 ACCEPTA arteria BLE L l blood gas Arteria - 1.9 -2.4-+2 complet l blood 017 MMOL/L .3 ed base 16:40 excess determi nation Salicylate ser/plas (08-06-2017 16:40) Salicyl = 3.0 [...] SQUARE METERS Comment: If this patient is -[place], then multiply the Comment: result by 1.210. Estimat = 30 50-200 complet ion of 017 ML/MIN ed creatin 16:40 ine renal clearan ce Serum = 1.4 0.70-1. complet or 017 mg/dL 30 ed plasma 16:40 creatin ine measure ment ( Carbon = 28 21.0-32 complet dioxide 017 mmoL/L [...] MB (CK-M Serum or plasma ethanol measurement (mas (08-06-2017 16:40) Serum = 0 0-99 complet or 017 mg/dL ed plasma 16:40 ethanol measure ment ([facility] Comment: ANY ALCOHOL > OR = 80 MG/DL IS CONSIDERED LEGALLY Comment: INTOXICATED UNDER [place] [facility] LAW. Acetaminophen level (mass/volume) (08-06-2017 16:40) Acetami = 0 10-30 complet nophen 017 ug/mL ed level 16:40 (mass/v olume) CBC w auto diff (08-06-2017 16:40) Blood [...] blood 16:40 platele t mean volume greyson [place] % = 6.7 % 1.7-9.3 complet 017 [...] blood 16:40 basophi l count (count/ vo Gas panel in Arterial blood (08-06-2017 16:40) Arteria ACCEPTA complet l 017 BLE ed patency 16:40 Wrist artery --pre arteria l punctur e SOURCE RIGHT complet 017 RADIAL ed 16:40
--- OUTSIDE RECORDS SUMMARY | 2017-08-10 15:04 | External Medical Summary Rpt | CCD ---
Demographics Preferred Language Uzbek Marital Status Unknown Episcopalian Affiliation Unknown Race Unknown Ethnic Group Unknown Author Author , DOLORES BERNAL Address Unknown Phone Immunization No patient found.
--- OUTSIDE RECORDS SUMMARY | 2017-08-10 15:04 | External Medical Summary Rpt | CCD ---
Author Author , DOLORES Organization DOLORES Address Unknown Phone [email or web address] Purpose Continuity of Care Document - 05-04-2017 [...] 017 K/mm3 ed monocyt 15:30 e count [place] % = 5.5 % 1.7-9.3 complet 017 [...] SQUARE METERS Comment: If this patient is -[place], then multiply the Comment: result by 1.210. [...] SQUARE METERS Comment: If this patient is -[place], then multiply the Comment: result by 1.210. [...] mg/dL ed plasma 16:40 ethanol measure ment ([facility] Comment: ANY ALCOHOL > OR = 80 MG/DL IS CONSIDERED LEGALLY Comment: INTOXICATED UNDER [place] STATE LAW. Acetaminophen level (mass/volume) (08-06-2017 16:40) [...] blood 16:40 platele t mean volume greyson [place] % = 6.7 % 1.7-9.3 complet 017 [...]
--- OUTSIDE RECORDS SUMMARY | 2017-08-10 15:05 | External Medical Summary Rpt ---
Author Author ZACDARLIN Nolasco, [employer] Organization [employer] Address Unknown Phone Unavailable Results CBC W Auto Differential panel in Blood Observa Value Referen Units Interpr Notes Date tion ce etation Range Basophils 0 - 0.2 K/MM3 Normal No Aug 08 informati 2016 3:30 [#/volume on in PM ] in source Blood by data Automated count Basophils 0.1 - 2.0 % Normal No Aug 08 / informati 2016 3:30 leukocyte on in PM s in source Blood by data Automated count Eosinophi 0.0 - 0.4 K/mm3 Normal No Aug 08 ls informati 2016 3:30 [#/volume on in PM ] in source Blood by data Automated count Eosinophi 0.1 - % Normal No Aug 08 ls/100 12.0 informati 2016 3:30 leukocyte on in PM s in source Blood by data Automated count Granulocy 1.3 - 8.0 K/mm3 Normal No Aug 08 britany informati 2016 3:30 [#/volume on in PM ] in source Blood by data Automated count Granulocy 37.0 - % Normal No Aug 08 britany/100 80.0 informati 2016 3:30 leukocyte on in PM s in source Blood by data Automated count Hematocri 42.0 - % Low No Aug 08 t [Volume 52.0 informati 2016 3:30 on in PM Fraction] source of Blood data Hemoglobi 14.1 - g/dL Low No Aug 08 n 18.0 informati 2016 3:30 [Mass/vol on in PM ume] in source Blood data Lymphocyt 0.7 - 4.5 K/mm3 Normal No Aug 08 es informati 2016 3:30 [#/volume on in PM ] in source Unspecifi data ed specimen by Automated count Lymphocyt 10 - 50 % Normal No Aug 08 es informati 2016 3:30 [#/volume on in PM ] in source Unspecifi data ed specimen by Automated count Erythrocy 27 - 31.2 pg Normal No Aug 08 te mean informati 2016 3:30 corpuscul on in PM ar source hemoglobi data n [Entitic mass] Erythrocy 31.8 - g/dl Normal No Aug 08 te mean 35.4 informati 2016 3:30 corpuscul on in PM ar source hemoglobi data n concentra tion [Mass/vol ume] by Automated count Erythrocy 82.2 - fl Normal No Aug 08 te mean 97.8 informati 2016 3:30 corpuscul on in PM ar volume source [Entitic data volume] by Automated count Monocytes 0.1 - 1.0 K/mm3 Normal No Aug 08 informati 2016 3:30 [#/volume on in PM ] in source Blood by data Automated count Monocytes 1.7 - 9.3 % Normal No Aug 08 /100 informati 2016 3:30 leukocyte on in PM s in source Blood by data Automated count Platelet 7.4 - fl Normal No Aug 08 mean 10.4 informati 2016 3:30 volume on in PM [Entitic source volume] data in Blood by Automated count Platelets 142 - 424 K/mm3 Normal No Aug 08 informati 2016 3:30 [#/volume on in PM ] in source Blood data Erythrocy 4.6 - 6.2 M/mm3 Low No Aug 08 britany informati 2016 3:30 [#/volume on in PM ] in source Amniotic data fluid Erythrocy 11.5 - % Normal No Aug 08 te 17.5 informati 2016 3:30 distribut on in PM ion width source [Entitic data volume] by Automated count Leukocyte 4.8 - K/MM3 Normal No Aug 08 s 10.8 informati 2016 3:30 [#/volume on in PM ] in source Blood data Drugs identified in Urine by Screen method Observa Value Referen Units Interpr Notes Date tion ce etation Range Positive urine drug screen samples are stored for 7 days. Contact the Lab if confirmation of positives is needed. Ampheta NEGATIV <1000 ng/mL No No Aug 06 mine E informa informa 2016 [Presen tion in tion in 6:00 PM ce] in source source Urine data data by Screen method Barbitura <200 ng/mL No No Aug 06 britany informati informati 2016 6:00 [Mass/vol on in on in PM ume] in source source Urine by data data Screen method Benzodiaz 200 ng/mL ng/mL No No Aug 06 epines informati informati 2016 6:00 [Mass/vol on in on in PM ume] in source source Serum or data data Plasma by Screen method Cocaine <300 ng/g No No Aug 06 [Mass/vol informati informati 2016 6:00 ume] in on in on in PM Unspecifi source source ed data data specimen Methadone <300 ng/mL No No Aug 06 informati informati 2016 6:00 [Mass/vol on in on in PM ume] in source source Unspecifi data data ed specimen Opiates <300 ng/mL No No Aug 06 [Mass/vol informati informati 2016 6:00 ume] in on in on in PM Unspecifi source source ed data data specimen Phencycli <25 ng/mL No No Aug 06 dine informati informati 2016 6:00 [Mass/vol on in on in PM ume] in source source Unspecifi data data ed specimen 11-Hydr NEGATIV <50 ng/mL No No Aug 06 oxy E informa informa 2017 delta-9 tion in tion in 6:00 PM source source tetrahy data data drocann abinol [Presen ce] in Unspeci fied specime n CBC W Auto Differential panel in Blood Observa Value Referen Units Interpr Notes Date tion ce etation Range Basophils 0 - 0.2 K/MM3 Normal No Aug 06 inform2016 4:40 [#/volume on in PM ] in source Blood by data Automated count Basophils 0.1 - 2.0 % Normal No Aug 06 informati 2016 4:40 leukocyte on in PM s in source Blood by data Automated count Eosinophi 0.0 - 0.4 K/mm3 Normal No Aug 06 ls informati 2016 4:40 [#/volume on in PM ] in source Blood by data Automated count Eosinophi 0.1 - % Normal No Aug 06 ls/100 12.0 informati 2016 4:40 leukocyte on in PM s in source Blood by data Automated count Granulocy 1.3 - 8.0 K/mm3 Normal No Aug 06 britany informati 2016 4:40 [#/volume on in PM ] in source Blood by data Automated count Granulocy 37.0 - % Normal No Aug 06 britany/100 80.0 informati 2016 4:40 leukocyte on in PM s in source Blood by data Automated count Hematocri 42.0 - % Low No Aug 06 t [Volume 52.0 informati 2017 4:40 on in PM Fraction] source of Blood data Hemoglobi 14.1 - g/dL Low No Aug 06 n 18.0 informati 2016 4:40 [Mass/vol on in PM ume] in source Blood data Lymphocyt 0.7 - 4.5 K/mm3 Normal No Aug 06 es informati 2016 4:40 [#/volume on in PM ] in source Unspecifi data ed specimen by Automated count Lymphocyt 10 - 50 % Normal No Aug 06 es informati 2017 4:40 [#/volume on in PM ] in source Unspecifi data ed specimen by Automated count Erythrocy 27 - 31.2 pg Normal No Aug 06 te mean informati 2017 4:40 corpuscul on in PM ar source hemoglobi data n [Entitic mass] Erythrocy 31.8 - g/dl Normal No Aug 06 te mean 35.4 informati 2017 4:40 corpuscul on in PM ar source hemoglobi data n concentra tion [Mass/vol ume] by Automated count Erythrocy 82.2 - fl Normal No Aug 06 te mean 97.8 informati 2017 4:40 corpuscul on in PM ar volume source [Entitic data volume] by Automated count Monocytes 0.1 - 1.0 K/mm3 Normal No Aug 06 informati 2017 4:40 [#/volume on in PM ] in source Blood by data Automated count Monocytes 1.7 - 9.3 % Normal No Jul 12 /100 informati 2017 4:40 leukocyte on in PM s in source Blood by data Automated count Platelet 7.4 - fl Normal No Aug 06 mean 10.4 informati 2017 4:40 volume on in PM [Entitic source volume] data in Blood by Automated count Platelets 142 - 424 K/mm3 Normal No Jul 12 informati 2017 4:40 [#/volume on in PM ] in source Blood data Erythrocy 4.6 - 6.2 M/mm3 Low No Aug 06 britany informati 2017 4:40 [#/volume on in PM ] in source Amniotic data fluid Erythrocy 11.5 - % Normal No Aug 06 te 17.5 informati 2017 4:40 distribut on in PM ion width source [Entitic data volume] by Automated count Leukocyte 4.8 - K/MM3 Normal No Jul 12 s 10.8 informati 2017 4:40 [#/volume on in PM ] in source Blood data Gas panel in Arterial blood Observa Value Referen Units Interpr Notes Date ti ce etation Range Base -2.4-+2.3 MMOL/L Normal No Oct 12 excess in informati 2017 4:40 Arterial on in PM blood source data Arteria ACCEPTA No No No No Oct 12 l BLE informa informa informa informa 2017 patency tion in tion in tion in tion in 4:40 PM Wrist source source source source artery data data data data --pre arteria l punctur e Bicarbona 22.0 - MMOL/L Low No Oct 12 te 26.0 informati 2017 4:40 [Moles/vo on in PM lume] in source Arterial data blood Oxygen No No No No Oct 12 content informati informati informati informati 2017 4:40 in on in on in on in on in PM Arterial source source source source blood data data data data Carbon 35.0 - MMHG Low No Oct 12 dioxide 45.0 informati 2017 4:40 [Partial on in PM pressure] source in data Arterial blood pH of 7.35 - MMOL/L High No Oct 12 Arterial 7.45 informati 2017 4:40 blood on in PM source data Oxygen 80 - 100 MMHG Low No Oct 12 [Partial informati 2017 4:40 pressure] on in PM in source Arterial data blood Oxygen 90 - 100 % Normal No Oct 12 saturatio informati 2017 4:40 n.calcula on in PM angela from source oxygen data partial pressure in Arterial blood SOURCE RIGHT No No No No Oct 12 RADIAL informa informa informa informa 2017 tion in tion in tion in tion in 4:40 PM source source source source data data data data Carbon 23 - 27 MMOL/L Low No Oct 12 dioxide, informati 2017 4:40 total on in PM [Moles/vo source lume] in data Arterial blood Fibrin D-dimer FEU [Mass/volume] in Platelet poor [...] 100 pg/mL High No Jun 16 tic 2016 5:35 peptide B on in PM source [Mass/vol data ume] in Serum or Plasma CBC W Auto Differential panel in Blood Observa Value Referen Units Interpr Notes Date tion ce etation Range Basophils 0 - 0.2 K/MM3 Normal No Jun 162016 5:35 [#/volume on in PM ] in source Blood by data Automated count Basophils 0.1 - 2.0 % Normal No Jun 162016 5:35 leukocyte on in PM s in source Blood by data Automated count Eosinophi 0.0 - 0.4 K/mm3 Normal No Jun 16 ls 2016 5:35 [#/volume on in PM ] in source Blood by data Automated count Eosinophi 0.1 - % Normal No Jun 16 ls/100 12.0 inform2016 5:35 leukocyte on in PM s in source Blood by data Automated count Granulocy 1.3 - 8.0 K/mm3 Normal No Jun 16 britany 2016 5:35 [#/volume on in PM ] in source Blood by data Automated count Granulocy 37.0 - % Normal No Jun 16 britany/100 80.0 ati 2016 5:35 leukocyte on in PM s in source Blood by data Automated count Hematocri 42.0 - % Low No Jun 16 t [Volume 52.0 ati 2016 5:35 on in PM Fraction] source of Blood data Hemoglobi 14.1 - g/dL Low No Jun 16 n 18.0 inform2016 5:35 [Mass/vol on in PM ume] in source Blood data Lymphocyt 0.7 - 4.5 K/mm3 Normal No Jun 16 es informati 2016 5:35 [#/volume on in PM ] in source Unspecifi data ed specimen by Automated count Lymphocyt 10 - 50 % Normal No Jun 16 es informati 2016 5:35 [#/volume on in PM ] in source Unspecifi data ed specimen by Automated count Erythrocy 27 - 31.2 pg Normal No Jun 16 te mean inform2016 5:35 corpuscul on in PM ar source [...] - 9.3 % Normal No Jun 16 / informati 2016 5:35 leukocyte on in PM [...] M/mm3 Low No Jun 16 britany informati 2017 5:35 [#/volume on in PM ] in source Amniotic data fluid Erythrocy 11.5 - % Normal No Jun 16 te 17.5 informati 2016 5:35 distribut on in PM ion width source [Entitic data volume] by Automated count Leukocyte 4.8 - K/MM3 Normal No Jun 16 s 10.8 informati 2016 5:35 [#/volume on in PM [...] 2.0 mmol/L Normal No May 04 [Moles/vo informati 2017 lume] in on in 10:00 PM Blood [...] 0.4 K/mm3 Normal No May 04 ls ati 2016 [#/volume on in 10:00 PM ] in source Blood by data Automated count Eosinophi 0.1 - % Normal No May 04 ls 12.0 2016 leukocyte on in 10:00 PM s in source Blood by data Automated count Granulocy 1.3 - 8.0 K/mm3 Normal No May 04 britany 2016 [#/volume on in 10:00 PM ] in source Blood by data Automated count Granulocy 37.0 - % Normal No May 04 80.0 2016 leukocyte on in 10:00 PM s in source Blood by data Automated count Hematocri 42.0 - % Low No May 04 t [Volume 52.0 2016 on in 10:00 PM Fraction] source of Blood data Hemoglobi 14.1 - g/dL Low No May 04 n 18.0 2016 [Mass/vol on in 10:00 PM ume] in source Blood data Lymphocyt 0.7 - 4.5 K/mm3 Normal No May 04 es 2016 [#/volume on in 10:00 PM ] in source Unspecifi data ed specimen by Automated count Lymphocyt 10 - 50 % Normal No May 04 es 2016 [#/volume on in 10:00 PM ] in source Unspecifi data ed specimen by Automated count Erythrocy 27 - 31.2 pg Normal No May 04 te mean 2016 corpuscul on in 10:00 PM ar source hemoglobi data n [Entitic mass] Erythrocy 31.8 - g/dl Normal No May 04 te mean 35.4 2016 corpuscul on in 10:00 PM ar source hemoglobi data n concentra tion [Mass/vol ume] by Automated count Erythrocy 82.2 - fl Normal No May 04 te mean 97.8 2016 corpuscul on in 10:00 PM ar volume source [Entitic data volume] by Automated count Monocytes 0.1 - 1.0 K/mm3 Normal No May 04 informati 2016 [#/volume on in 10:00 PM ] in source Blood by data Automated count Monocytes 1.7 - 9.3 % Normal No May 04 informati 2016 leukocyte on in 10:00 PM s [...] % Normal No May 04 te 17.5 ati 2016 distribut on in 10:00 PM ion width source [Entitic data volume] by Automated count Leukocyte 4.8 - K/MM3 Normal No May 04 s 10.8 informati 2016 [#/volume on in 10:00 PM ] in source Blood data
--- NOTE | 2017-08-10 15:39 | Urgent Treatment Center Report ---
History of Present Issue Date/Time Seen by Provider 08/10/17 1539 Visit Reason Pt arrived:Walked Presenting Problem:PT SEEN IN ED THURSDAY DUE TO USING NARCAN. PT PRESENTS TODAY WITH NAUSEA, CONSTIPATION, NERVOUS AND SHAKY THAT STARTED YESTERDAY. Location if Accident: Onset of symptoms date/time:/ or onset unknown for:MEDICAL HX UNKNOWN Have you (or family members/close friends) recently traveled outside the [place]? N If Yes, where/when: Have you had exposure to infectious disease within the past month? TB? Other? Specify: c/o multiple symptoms. Symptoms different each time someone else enters room. Vague and poor historian. Obvious confusion picked up in conversation. Initially c/o "I think side effects from what happen ". Nausea, shaking, "a tad bit of constipation maybe", and feeling nervous. However when [employer] entered, it was pain all over and nausea but throughout conversation, changed to his elevated blood pressure and that is what brought him in. Does recall forgetting to take his medication this morning and has them in his pocket. Took them while waiting he reports. pt doesn't recall being here Thursday and doesn't report being at Dr. Knight's office today intitially. Once mentioned by staff, pt reports she was tired of waiting so he just came here to wait. "More people to talk to here ". 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 In May, she had been for one year. pt was seen in ER after mistaking narcan nasal spray for daily nasal spray. Hx of chronic pain and had been taking methadone. Dx opiate withdrawal and improved w/ morphine and his own 3pm dose methadone. [facility] Thursday for similiar symptoms initially reported today, nausea, shakey but also chest pain. EKG and labs benign. Dx nausea. Was eating and drinking prior to discharge. A son is reportedly with patient today but attempted to locate him multiple times and never did have the opportunity to speak with him. Source patient Exam Limitations confusion/vague/poor historian ALLERGIES Coded Allergies: Penicillins (Mild, I-RASH 12/15/16) Home Medications Active Scripts Ondansetron (Zofran 4MG Odt) 4 MG PO Q6HP PRN NAUSEA AND VOMITING #20 TAB Prov: 03/23/17 Fluticasone Propionate (Flonase 50 Mcg Nasal [place]) 2 SPRAY NA DAILY #1 BOT Prov: 06/09/17 BENZONATATE (Benzonatate) 100 MG PO TID #15 CAP Prov: 05/04/17 BISOPROLOL FUMARATE (Bisoprolol 5MG) 5 MG PO DAILY #30 TAB Prov: 02/15/17 HYDROXYZINE HCL (Hydroxyzine HCl) 25 MG PO QHSP PRN sleep #5 CAP Prov: 05/13/17 Reported Medications Lisinopril (Zestril 20MG Tab) 20 MG NG DAILY ALFUZOSIN HCL (Alfuzosin HCl ER) 10 MG PO DAILY Methadone Hcl (Methadone) 10 MG PO TID Omeprazole 20 MG PO DAILY Sucralfate (Sucralfate 1GM Tablet) 1 GM NG ACHS History Medical History General CAD? No Angina: No [place]: Yes Hypertension? Yes Hyperlipidemia? Yes CHF? Yes DVT? No PE? No COPD? Yes Asthma? Yes Anemia? No GERD? Yes Gastric ulcers? Yes GI Bleed? No Hernia? No Thyroid Problems? No Hypothyroidism? No CVA? No Seizures? No Diabetes? No Renal Insuffiency? No UTI? No Stones? No BPH? Yes GB Disease: Yes Nephritic Syndrome? No Asplenia? No Hepatitis? No Sickle Cell Disease? No Arthritis? No Migraines? No Cataracts? Yes Glaucoma? No MRSA? No HIV? No TB? No Anxiety? No Depression? Yes Cancer? No More? No Immunization HX DT/Tetanus Unknown Flu Refused Pneumonia Refuses Surgical Hx Previous Surgery?Y GALLBLADDER TURP STOMACH CYST REMOVED FROM [facility]AR Family History Family HX Diabetes No CAD Yes Hypertension Yes Hyperlipidemia Yes Cancer No TB No Social History Smoking Hx Smoker: Current Every Day Smoker Tobacco: Yes Type Cigarettes Packs/day < 1 Pack Alcohol Alcohol: No Review of Systems All Other Systems Reviewed and Negative Constitutional see HPI, denies chills ("just my hands shake at times"), denies fever, denies malaise, weakness ("always") Eyes denies no symptoms reported ENT denies: no symptoms reported. Respiratory denies cough, denies shortness of breath, denies wheezing Cardiovascular denies chest pain, denies palpitations Gastrointestinal see HPI, denies abdominal pain, denies diarrhea, denies vomiting Genitourinary denies: dysuria, frequency, hesitancy. Musculoskeletal other ("i hurt all over") Skin denies rash Psychiatric/Neurological denies headache Physical Exam Vital Signs Vital Signs Date Time Temp Pulse Resp B/P Pulse O2 O2 Flow FiO2 Ox Delivery Rate 08/10 1636 97.8 80 16 156/81 98 08/10 1513 97.8 90 16 162/103 98 General Appearance no apparent distress, unkept appearance, unknown odor present , bed bug removed off clothing, bed bug seen crawling on a paper patient removed from pocket Ear, Nose, Throat normal ENT inspection Neck non-tender, supple Respiratory Status No: respiratory distress, productive cough, non productive cough. Lung Sounds anterior: lungs clear. posterior: lungs clear. bilateral: lungs clear. Cardiovascular regular rate/rhythm, no peripheral edema, no murmur Gastrointestinal normal bowel sounds, non tender, soft Neurologic alert, oriented x 3 Mental status normal mood/affect Skin warm/dry Medical Decision Making LABS/Meds/Orders Pt receiving controlled substance in ED? No (not here today) Results/Orders Current Medication Orders Sig/Harshad Start time Last Medication Dose Route Stop Time Status Admin Ondansetron HCl 4 MG ONCE ONE 08/10 1630 DC 08/10 SL 08/10 1631 1629 Ondansetron HCl 0 .STK-MED ONE 08/10 1627 DC .ROUTE Consult MD Physician Consult Consult/PCP Dr. Knight, PCP Time Called 1625 Reason Pt. Condition Comments SPoke to Augustina who reports patient was in office today to see Dr. Knight but after waiting only 5 minutes, said he had waited too long and was going to the ER. Told Dr. Knight pt was here in the [facility] to be seen. Dr. Knight wants to see patient tomorrow. patient to come to office anytime he is able tomorrow for persistant symptoms since . Discussed with patient who agrees but wants something for nausea right now. Progress [facility] Progress Notes 1 Date 08/10/17 Time 1520 Comment pt reports he did forget to take daily meds. Found them in his pocket and just took all of them. [facility] Progress Notes 2 Date 08/10/17 Time 1600 Comment Sound asleep in room. Dr. Knight's office remains busy or not answering. [facility] Progress Notes 3 Date 08/10/17 Time 1633 Comment pt reports he is already feeling better and ready to go home. Tells me that someone found a bed bug on his shirt, had forgot it was me that found it. Departure Departure Time of Disposition 1629 Disposition DC Home or Self Care(routine) Clinical Impression Primary Impression: Nausea Secondary Impressions: Infestation by bed bug Condition STABLE Referrals Eugene VÁZQUEZ,Kike Nunes (Family) Anytime tomorrow. Just show up and Dr. Knight will work you in. Patient Instructions DI for Bed Bug Bites, DI for Nausea -- Adult, How to Get Rid of Bed Bugs Additional Instructions Same as Thursday. BRAT diet as we discussed. be sure to follow up tomorrow. Pt aware of bed bugs found. One on shirt and one on paper in his pocket. STRONGLY suggested treatment. Discharge Counseling Counseled pt/family regarding diagnosis, medications/RX, home care, follow up needs at 3700
--- NOTE | 2017-08-10 15:39 | Urgent Treatment Center Report ---
History of Present Issue Date/Time Seen by Provider 08/10/17 1539 Visit Reason Pt arrived:Walked Presenting Problem:PT SEEN IN ED THURSDAY DUE TO USING NARCAN. PT PRESENTS TODAY WITH NAUSEA, CONSTIPATION, NERVOUS AND SHAKY THAT STARTED YESTERDAY. Location if Accident: Onset of symptoms date/time:/ or onset unknown for:MEDICAL HX UNKNOWN Have you (or family members/close friends) recently traveled outside the [place]? N If Yes, where/when: Have you had exposure to infectious disease within the past month? TB? Other? Specify: c/o multiple symptoms. Symptoms different each time someone else enters room. Vague and poor historian. Obvious confusion picked up in conversation. Initially c/o "I think side effects from what happen ". Nausea, shaking, "a tad bit of constipation maybe", and feeling nervous. However when CREDIT AUTHORIZER entered, it was pain all over and nausea but throughout conversation, changed to his elevated blood pressure and that is what brought him in. Does recall forgetting to take his medication this morning and has them in his pocket. Took them while waiting he reports. pt doesn't recall being here Thursday and doesn't report being at Dr. Knight's office today intitially. Once mentioned by staff, pt reports she was tired of waiting so he just came here to wait. "More people to talk to here ". 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 In May, she had been for one year. pt was seen in ER after mistaking narcan nasal spray for daily nasal spray. Hx of chronic pain and had been taking methadone. Dx opiate withdrawal and improved w/ morphine and his own 3pm dose methadone. Returned to [facility] Thursday for similiar symptoms initially reported today, nausea, shakey but also chest pain. EKG and labs benign. Dx nausea. Was eating and drinking prior to discharge. A son is reportedly with patient today but attempted to locate him multiple times and never did have the opportunity to speak with him. Source patient Exam Limitations confusion/vague/poor historian ALLERGIES Coded Allergies: Penicillins (Mild, I-RASH 12/15/16) Home Medications Active Scripts Ondansetron (Zofran 4MG Odt) 4 MG PO Q6HP PRN NAUSEA AND VOMITING #20 TAB Prov: 03/23/17 Fluticasone Propionate (Flonase 50 Mcg Nasal [place]) 2 SPRAY NA DAILY #1 BOT Prov: 06/09/17 BENZONATATE (Benzonatate) 100 MG PO TID #15 CAP Prov: 05/04/17 BISOPROLOL FUMARATE (Bisoprolol 5MG) 5 MG PO DAILY #30 TAB Prov: 02/15/17 HYDROXYZINE HCL (Hydroxyzine HCl) 25 MG PO QHSP PRN sleep #5 CAP Prov: 05/13/17 Reported Medications Lisinopril (Zestril 20MG Tab) 20 MG NG DAILY ALFUZOSIN HCL (Alfuzosin HCl ER) 10 MG PO DAILY Methadone Hcl (Methadone) 10 MG PO TID Omeprazole 20 MG PO DAILY Sucralfate (Sucralfate 1GM Tablet) 1 GM NG ACHS History Medical History General CAD? No Angina: No ID: Yes Hypertension? Yes Hyperlipidemia? Yes CHF? Yes DVT? No PE? No COPD? Yes Asthma? Yes Anemia? No GERD? Yes Gastric ulcers? Yes GI Bleed? No Hernia? No Thyroid Problems? No Hypothyroidism? No CVA? No Seizures? No Diabetes? No Renal Insuffiency? No UTI? No Stones? No BPH? Yes GB Disease: Yes Nephritic Syndrome? No Asplenia? No Hepatitis? No Sickle Cell Disease? No Arthritis? No Migraines? No Cataracts? Yes Glaucoma? No MRSA? No HIV? No TB? No Anxiety? No Depression? Yes Cancer? No More? No Immunization HX DT/Tetanus Unknown Flu Refused Pneumonia Refuses Surgical Hx Previous Surgery?Y GALLBLADDER TURP STOMACH CYST REMOVED FROM AXILLAR Family History Family HX Diabetes No CAD Yes Hypertension Yes Hyperlipidemia Yes Cancer No TB No Social History Smoking Hx Smoker: Current Every Day Smoker Tobacco: Yes Type Cigarettes Packs/day < 1 Pack Alcohol Alcohol: No Review of Systems All Other Systems Reviewed and Negative Constitutional see HPI, denies chills ("just my hands shake at times"), denies fever, denies malaise, weakness ("always") Eyes denies no symptoms reported ENT denies: no symptoms reported. Respiratory denies cough, denies shortness of breath, denies wheezing Cardiovascular denies chest pain, denies palpitations Gastrointestinal see HPI, denies abdominal pain, denies diarrhea, denies vomiting Genitourinary denies: dysuria, frequency, hesitancy. Musculoskeletal other ("i hurt all over") Skin denies rash Psychiatric/Neurological denies headache Physical Exam Vital Signs Vital Signs Date Time Temp Pulse Resp B/P Pulse O2 O2 Flow FiO2 Ox Delivery Rate 08/10 1636 97.8 80 16 156/81 98 08/10 1513 97.8 90 16 162/103 98 General Appearance no apparent distress, unkept appearance, unknown odor present , bed bug removed off clothing, bed bug seen crawling on a paper patient removed from pocket Ear, Nose, Throat normal ENT inspection Neck non-tender, supple Respiratory Status No: respiratory distress, productive cough, non productive cough. Lung Sounds anterior: lungs clear. posterior: lungs clear. bilateral: lungs clear. Cardiovascular regular rate/rhythm, no peripheral edema, no murmur Gastrointestinal normal bowel sounds, non tender, soft Neurologic alert, oriented x 3 Mental status normal mood/affect Skin warm/dry Medical Decision Making LABS/Meds/Orders Pt receiving controlled substance in ED? No (not here today) Results/Orders Current Medication Orders Sig/Harshad Start time Last Medication Dose Route Stop Time Status Admin Ondansetron HCl 4 MG ONCE ONE 08/10 1630 DC 08/10 SL 08/10 1631 1629 Ondansetron HCl 0 .STK-MED ONE 08/10 1627 DC .ROUTE Consult MD Physician Consult Consult/PCP Dr. Knight, PCP Time Called 1625 Reason Pt. Condition Comments SPoke to Augustina who reports patient was in office today to see Dr. Knight but after waiting only 5 minutes, said he had waited too long and was going to the ER. Told Dr. Knight pt was here in the [facility] to be seen. Dr. Knight wants to see patient tomorrow. patient to come to office anytime he is able tomorrow for persistant symptoms since . Discussed with patient who agrees but wants something for nausea right now. Progress [facility] Progress Notes 1 Date 08/10/17 Time 1520 Comment pt reports he did forget to take daily meds. Found them in his pocket and just took all of them. [facility] Progress Notes 2 Date 08/10/17 Time 1600 Comment Sound asleep in room. Dr. Knight's office remains busy or not answering. [facility] Progress Notes 3 Date 08/10/17 Time 1633 Comment pt reports he is already feeling better and ready to go home. Tells me that someone found a bed bug on his shirt, had forgot it was me that found it. Departure Departure Time of Disposition 1629 Disposition DC Home or Self Care(routine) Clinical Impression Primary Impression: Nausea Secondary Impressions: Infestation by bed bug Condition STABLE Referrals Eugene VÁZQUEZ,Kike Nunes (Family) Anytime tomorrow. Just show up and Dr. Knight will work you in. Patient Instructions DI for Bed Bug Bites, DI for Nausea -- Adult, How to Get Rid of Bed Bugs Additional Instructions Same as Thursday. BRAT diet as we discussed. be sure to follow up tomorrow. Pt aware of bed bugs found. One on shirt and one on paper in his pocket. STRONGLY suggested treatment. Discharge Counseling Counseled pt/family regarding diagnosis, medications/RX, home care, follow up needs at [phone]
[2017-08-10 16:36] VITALS: BP 156/81
== END 2017-08-10 16:38 | disposition home or self-care (01) ==
LOC: UTC 14:58
DX: R11.0 Nausea (principal); T14.8XXA Other injury of unspecified body region, initial encounter; W57.XXXA Bitten or stung by nonvenomous insect and other nonvenomous arthropods, initial encounter; F17.210 Nicotine dependence, cigarettes, uncomplicated; I11.0 Hypertensive heart disease with heart failure; I50.9 Heart failure, unspecified; J44.9 Chronic obstructive pulmonary disease, unspecified; K21.9 Gastro-esophageal reflux disease without esophagitis; Z91.14 Patient's other noncompliance with medication regimen

== ENCOUNTER 2017-09-04 22:26 | Emergency (ER) | payer OTHER, MEDICARE ==
[~2017-09-04] VITALS: Ht 172.7 cm; Wt 63.0 kg
--- OUTSIDE RECORDS SUMMARY | 2017-09-04 22:41 | External Medical Summary Rpt | CCD ---
Demographics Preferred Language Upper Sorbian Marital Status Unknown Taoism Affiliation Unknown Race Unknown Ethnic Group Unknown Author Author , DOLORES BERNAL Address Unknown Phone Immunization No patient found.
--- OUTSIDE RECORDS SUMMARY | 2017-09-04 22:41 | External Medical Summary Rpt | CCD ---
Author Author , DOLORES Organization DOLORES Address Unknown Phone [email or web address] Purpose Continuity of Care Document - 05-04-2017 [...] Order Detail nces retati t Range on Comprehensive metabolic panel (08-08-2017 15:30) Protein = [...] SQUARE METERS Comment: If this patient is -Belgian, then multiply the Comment: result by 1.210. [...] plasma 15:30 creatin e kinase MB (CK-M CBC w auto diff (08-08-2017 15:30) Blood = 5.2 4.8-10. complet leukocy 017 K/MM3 8 ed britany 15:30 count (number /volume ) Automat = 13.4 11.5-17 complet ed 017 % .5 ed erythro 15:30 cyte distrib ution width Red = 3.66 4.6-6.2 complet blood 017 M/mm3 ed cell 15:30 count Blood = 203 142-424 complet platele 017 K/mm3 ed t count 15:30 Automat = 8.1 7.4-10. complet ed 017 fl 4 ed blood 15:30 platele t mean volume greyson Refugio % = 5.5 % 1.7-9.3 complet 017 ed 15:30 Absolut = 0.3 0.1-1.0 complet e 017 K/mm3 ed monocyt 15:30 e count Automat = 95.2 82.2-97 complet ed 017 fl .8 ed erythro 15:30 cyte mean corpusc ular v Automat = 32.1 31.8-35 complet ed 017 g/dl .4 ed erythro 15:30 cyte mean corpusc ular h Mean = 30.5 27-31.2 complet corpusc 017 pg ed ular 15:30 hemoglo bin (MCH) determ Lymphoc = 17.5 10-50 complet yte 017 % ed count, 15:30 blood, automat ed Absolut = 0.9 0.7-4.5 complet e 017 K/mm3 ed lymphoc 15:30 yte count Blood = 11.1 14.1-18 complet hemoglo 017 g/dL .0 ed bin 15:30 measure ment (mass/v olum Blood = 34.8 42.0-52 complet hematoc 017 % .0 ed rit 15:30 (volume fractio n) Granulo = 73.3 37.0-80 complet cyte 017 % .0 ed percent 15:30 age Blood = 3.8 1.3-8.0 complet granulo 017 K/mm3 ed cytes 15:30 automat ed count (numb Automat = 2.8 % 0.1-12. complet ed 017 0 ed blood 15:30 eosinop hils/10 0 leukocy t Automat = 0.2 0.0-0.4 complet ed 017 K/mm3 ed blood 15:30 eosinop hil count Baso % = 0.9 % 0.1-2.0 complet 017 ed 15:30 Automat = 0.1 0-0.2 complet ed 017 K/MM3 ed blood 15:30 basophi l count (count/ vo Urine 9-analyte drugs of abuse screening (08-06-2017 [...] .3 ed base 16:40 excess determi nation CBC w auto diff (08-06-2017 16:40) Blood [...] blood 16:40 platele t mean volume greyson Refugio % = 6.7 % 1.7-9.3 complet 017 [...] SQUARE METERS Comment: If this patient is -Belgian, then multiply the Comment: result by 1.210. [...] MB (CK-M Serum or plasma ethanol measurement ([facility] (08-06-2017 16:40) Serum = 0 0-99 complet or 017 mg/dL ed plasma 16:40 ethanol measure ment ([facility] Comment: ANY ALCOHOL > OR = 80 MG/DL IS CONSIDERED LEGALLY Comment: INTOXICATED UNDER [facility] LAW. Acetaminophen level (mass/volume) (08-06-2017 16:40) Acetami = 0 10-30 complet nophen 017 ug/mL ed level 16:40 (mass/v olume) Gas panel in Arterial blood (08-06-2017 16:40) Arteria ACCEPTA complet l 017 BLE ed patency 16:40 Wrist artery --pre arteria l punctur e SOURCE RIGHT complet 017 RADIAL ed 16:40
--- OUTSIDE RECORDS SUMMARY | 2017-09-04 22:41 | External Medical Summary Rpt | CCD ---
Demographics Preferred Language Romanian Marital Status Unknown Sabianist Affiliation Unknown Race Unknown Ethnic Group Unknown Author Author , DOLORES BERNAL Address Unknown Phone Immunization No patient found.
--- OUTSIDE RECORDS SUMMARY | 2017-09-04 22:41 | External Medical Summary Rpt | CCD ---
Author Author , DOLORES Organization DOLORES Address Unknown Phone [email or web address] Purpose Continuity of Care Document - 05-04-2017 [...] SQUARE METERS Comment: If this patient is -Monegasque, then multiply the Comment: result by 1.210. [...] blood 15:30 platele t mean volume greyson Ashe % = 5.5 % 1.7-9.3 complet 017 [...] blood 16:40 platele t mean volume greyson Ashe % = 6.7 % 1.7-9.3 complet 017 [...] SQUARE METERS Comment: If this patient is -Monegasque, then multiply the Comment: result by 1.210. [...] MB (CK-M Serum or plasma ethanol measurement ([facility] (08-06-2017 16:40) Serum = 0 0-99 complet or 017 mg/dL ed plasma 16:40 ethanol measure ment ([facility] Comment: ANY ALCOHOL > OR = 80 MG/DL IS CONSIDERED LEGALLY Comment: INTOXICATED UNDER [facility] LAW. Acetaminophen level (mass/volume) (08-06-2017 16:40) Acetami = 0 10-30 complet nophen 017 ug/mL ed level 16:40 (mass/v olume) Gas panel in Arterial blood (08-06-2017 16:40) Arteria ACCEPTA complet l 017 BLE ed patency 16:40 Wrist artery --pre arteria l punctur e SOURCE RIGHT complet 017 RADIAL ed 16:40
[2017-09-04 22:54] LABS: HEMOGLOBIN 11.4 g/dL (14.1-18.0); LYMPH # 0.9 K/mm3 (0.7-4.5); LYMPH % 14.7 % (10-50)
--- NOTE | 2017-09-05 00:25 | Emergency Room Report ---
History of Present Illness Time Seen by MD Strauss Presenting Problem in Triage Pt arrived:Wheelchair Presenting Problem:C/O SOB AFTER WALKING OUTSIDE TO FEED HIS CATS. HAS PRODUCTIVE COUGH WITH CLEAR SPUTUM. PATIENT HAS VISIBLE BED BUGS ON HIM. 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 N Clinical Suspician of Infection? Y Mental Status: 1 - Regular (Normal Baseline) Sepsis Risk:Severe Sepsis Risk Have you (or family members/close friends) recently traveled outside the [place]? N If Yes, where/when: Have you had exposure to infectious disease within the past month? N TB? Other? Specify: Source patient, RN notes reviewed, family, old records Exam Limitations no limitations Comment pt with feeling of sob after going outside and presents to ed for eval- no chest pain but does have some nausea Cardiac Chest Pain Chest pain indicative of cardiac No Timing/Duration this evening Severity moderate ALLERGIES Coded Allergies: Penicillins (Mild, I-RASH 12/15/16) Home Medications Active Scripts Fluticasone Propionate (Flonase 50 Mcg Nasal [place]) 2 SPRAY NA DAILY #1 BOT Prov: 06/09/17 Reported Medications Lisinopril (Zestril 20MG Tab) 20 MG NG DAILY ALFUZOSIN HCL (Alfuzosin HCl ER) 10 MG PO DAILY Methadone Hcl (Methadone) 10 MG PO TID Omeprazole 20 MG PO DAILY Sucralfate (Sucralfate 1GM Tablet) 1 GM NG ACHS History Medical History General CAD? No Angina: No ND: Yes Hypertension? Yes Hyperlipidemia? Yes CHF? Yes DVT? No PE? No COPD? Yes Asthma? Yes Anemia? No GERD? Yes Gastric ulcers? Yes GI Bleed? No Hernia? No Thyroid Problems? No Hypothyroidism? No CVA? No Seizures? No Diabetes? No Renal Insuffiency? No End Stage Renal Disease? No UTI? No Stones? No BPH? Yes GB Disease: Yes Nephritic Syndrome? No Asplenia? No Hepatitis? No Sickle Cell Disease? No Arthritis? No Migraines? No Cataracts? Yes Glaucoma? No MRSA? No HIV? No TB? No Anxiety? No Depression? Yes Cancer? No More? No Immunization Hx DT/Tetanus Unknown Flu Refused Pneumonia Refuses Surgical Hx Previous Surgery?Y GALLBLADDER TURP STOMACH CYST REMOVED FROM AXILLAR Family History Family Hx Diabetes No CAD Yes Hypertension Yes Hyperlipidemia Yes Cancer No TB No Social History Smoking Hx Smoker: Current Every Day Smoker Tobacco: Yes Type Cigarettes Packs/day < 1 Pack Alcohol Alcohol: No Drugs none Review of Systems All Other Systems Reviewed and Negative Constitutional denies fever Eyes denies drainage ENT denies: ear pain, epistaxis, throat pain. Respiratory see HPI, denies cough, shortness of breath, denies wheezing Cardiovascular denies chest pain, denies syncope Gastrointestinal see HPI, denies abdominal pain, denies diarrhea, nausea, denies vomiting Genitourinary denies: dysuria, frequency, hesitancy, hematuria. Musculoskeletal denies back pain, denies joint pain, denies joint swelling, denies neck pain Skin denies rash Psychiatric/Neurological denies headache, denies seizure Physical Exam Vital Signs Vital Signs Date Time Temp Pulse Resp B/P Pulse O2 O2 Flow FiO2 Ox Delivery Rate 09/05 0055 74 24 147/92 95 09/04 2231 98.0 87 24 170/111 96 - WBC >12,000 or <4,000 or 10% bands? 2 or more SIRS Criteria Met? B/P:147/92 MAP:130 Creatinine >2.0? UA output<0.5ml/kg/hr for 2 hrs? Platelet count >100,000? Lactate >2.0mmol/1? INR >1.2 or PTT > than 60 sec? Evidence of Organ Dysfunction? Provider documented clinical suspician of infection? Y Sepsis Criteria Count: 2 Sepsis Risk: Severe Sepsis Risk General Appearance no apparent distress Eye Exam - bilateral eye PERRL, bilateral eye EOMI Ear, Nose, Throat normal ENT inspection Neck supple Respiratory Status No: respiratory distress. Lung Sounds bilateral: decreased breath sounds. 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 No Results/Orders Laboratory Tests 09/04/172244: Lactic Acid 1.3 09/04/172244: Sodium 142, Potassium 3.2 L, Chloride 108 H, Carbon Dioxide 29, BUN 30 H, Creatinine 1.3, Estimated Creat Clear 37 L, Estimated GFR (MDRD) 52, Glucose 89 , Calcium 8.5, Total Bilirubin 0.3, AST 12 L, ALT 10 L, Alkaline Phosphatase 91, Creatine Kinase 59, CK-MB (CK-2) Rel Index 2.2, CK and CKMB Interp 1.3, Troponin I 0.04, Total Protein 6.8, Albumin 3.3 L, Globulin 3.5 H, Albumin/ Globulin Ratio 0.9 L, WBC 5.8, RBC 3.83 L, Hgb 11.4 L, Hct 36.1 L, MCV 94.3, RDW 13.3, Plt Count 206, MPV 8.3, Gran % 73.7, Gran # 4.3, Lymphocytes % 14.7, Monocytes % 7.1, Eosinophils % 3.7, Basophils % 0.9, Lymphocytes # 0.9, Monocytes # 0.4, Eosinophils # 0.2, Basophils # 0.1, PUBS MCHC 31.6 L, MCH 29.8 Current Medication Orders Sig/Harshad Start time Last Medication Dose Route Stop Time Status Admin Sodium Chloride 10 ML PRN PRN 09/04 2245 AC IV 09/05 2244 Orders Procedure Date/time Status 12 LEAD EKG-BESSON (INITIAL) 09/04 2244 Active ELECTROCARDIOGRAM REQUEST 09/04 2244 Active CHEST-PORTABLE 09/04 2244 Active IV SALINE LOCK 09/04 2244 Active ACCOUNTING ASSISTANT 09/04 2244 Active CULTURE, BLOOD 09/04 2244 Active URINALYSIS/COMPLETE 09/04 2244 Active LACTIC ACID 09/04 2244 Complete CBC WITH AUTO DIFF 09/04 2244 Complete CARDIAC ENZYMES 09/04 2244 Complete CHEM 12 PROFILE 09/04 2244 Complete CM/EKG CM/medical services coordinator Rhythm Normal Sinus Rhythm EKG non-spec. ST/Twave chgs XRAY/CT/US XRAY/CT/US XRAY chest XR interpretation by reviewed by me Xray Results abnormal (chronic changes ) Departure Departure Time of Disposition 0133 Disposition DC Home or Self Care(routine) Clinical Impression Primary Impression: COPD exacerbation Condition STABLE Referrals Kike Knight MD (Family) Patient Instructions DI for Chronic Obstructive Pulmonary Disease Additional Instructions see pcp thursday and resume meds Discharge Counseling Counseled pt/family regarding diagnosis, test results, medications/RX, follow up needs [place] [address]
--- NOTE | 2017-09-05 00:25 | Emergency Room Report ---
History of Present Illness Time Seen by MD Strauss Presenting Problem in Triage Pt arrived:Wheelchair Presenting Problem:C/O SOB AFTER WALKING OUTSIDE TO FEED HIS CATS. HAS PRODUCTIVE COUGH WITH CLEAR SPUTUM. PATIENT HAS VISIBLE BED BUGS ON HIM. 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 N Clinical Suspician of Infection? Y Mental Status: 1 - Regular (Normal Baseline) Sepsis Risk:Severe Sepsis Risk Have you (or family members/close friends) recently traveled outside the [place]? N If Yes, where/when: Have you had exposure to infectious disease within the past month? N TB? Other? Specify: Source patient, RN notes reviewed, family, old records Exam Limitations no limitations Comment pt with feeling of sob after going outside and presents to ed for eval- no chest pain but does have some nausea Cardiac Chest Pain Chest pain indicative of cardiac No Timing/Duration this evening Severity moderate ALLERGIES Coded Allergies: Penicillins (Mild, I-RASH 12/15/16) Home Medications Active Scripts Fluticasone Propionate (Flonase 50 Mcg Nasal [place]) 2 SPRAY NA DAILY #1 BOT Prov: 06/09/17 Reported Medications Lisinopril (Zestril 20MG Tab) 20 MG NG DAILY ALFUZOSIN HCL (Alfuzosin HCl ER) 10 MG PO DAILY Methadone Hcl (Methadone) 10 MG PO TID Omeprazole 20 MG PO DAILY Sucralfate (Sucralfate 1GM Tablet) 1 GM NG ACHS History Medical History General CAD? No Angina: No MA: Yes Hypertension? Yes Hyperlipidemia? Yes CHF? Yes DVT? No PE? No COPD? Yes Asthma? Yes Anemia? No GERD? Yes Gastric ulcers? Yes GI Bleed? No Hernia? No Thyroid Problems? No Hypothyroidism? No CVA? No Seizures? No Diabetes? No Renal Insuffiency? No End Stage Renal Disease? No UTI? No Stones? No BPH? Yes GB Disease: Yes Nephritic Syndrome? No Asplenia? No Hepatitis? No Sickle Cell Disease? No Arthritis? No Migraines? No Cataracts? Yes Glaucoma? No MRSA? No HIV? No TB? No Anxiety? No Depression? Yes Cancer? No More? No Immunization Hx DT/Tetanus Unknown Flu Refused Pneumonia Refuses Surgical Hx Previous Surgery?Y GALLBLADDER TURP STOMACH CYST REMOVED FROM [facility] Family History Family Hx Diabetes No CAD Yes Hypertension Yes Hyperlipidemia Yes Cancer No TB No Social History Smoking Hx Smoker: Current Every Day Smoker Tobacco: Yes Type Cigarettes Packs/day < 1 Pack Alcohol Alcohol: No Drugs none Review of Systems All Other Systems Reviewed and Negative Constitutional denies fever Eyes denies drainage ENT denies: ear pain, epistaxis, throat pain. Respiratory see HPI, denies cough, shortness of breath, denies wheezing Cardiovascular denies chest pain, denies syncope Gastrointestinal see HPI, denies abdominal pain, denies diarrhea, nausea, denies vomiting Genitourinary denies: dysuria, frequency, hesitancy, hematuria. Musculoskeletal denies back pain, denies joint pain, denies joint swelling, denies neck pain Skin denies rash Psychiatric/Neurological denies headache, denies seizure Physical Exam Vital Signs Vital Signs Date Time Temp Pulse Resp B/P Pulse O2 O2 Flow FiO2 Ox Delivery Rate 09/05 0055 74 24 147/92 95 09/04 2231 98.0 87 24 170/111 96 - WBC >12,000 or <4,000 or 10% bands? 2 or more SIRS Criteria Met? B/P:147/92 MAP:130 Creatinine >2.0? UA output<0.5ml/kg/hr for 2 hrs? Platelet count >100,000? Lactate >2.0mmol/1? INR >1.2 or PTT > than 60 sec? Evidence of Organ Dysfunction? Provider documented clinical suspician of infection? Y Sepsis Criteria Count: 2 Sepsis Risk: Severe Sepsis Risk General Appearance no apparent distress Eye Exam - bilateral eye PERRL, bilateral eye EOMI Ear, Nose, Throat normal ENT inspection Neck supple Respiratory Status No: respiratory distress. Lung Sounds bilateral: decreased breath sounds. 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 No Results/Orders Laboratory Tests 09/04/172244: Lactic Acid 1.3 09/04/172244: Sodium 142, Potassium 3.2 L, Chloride 108 H, Carbon Dioxide 29, BUN 30 H, Creatinine 1.3, Estimated Creat Clear 37 L, Estimated GFR (MDRD) 52, Glucose 89 , Calcium 8.5, Total Bilirubin 0.3, AST 12 L, ALT 10 L, Alkaline Phosphatase 91, Creatine Kinase 59, CK-MB (CK-2) Rel Index 2.2, CK and CKMB Interp 1.3, Troponin I 0.04, Total Protein 6.8, Albumin 3.3 L, Globulin 3.5 H, Albumin/ Globulin Ratio 0.9 L, WBC 5.8, RBC 3.83 L, Hgb 11.4 L, Hct 36.1 L, MCV 94.3, RDW 13.3, Plt Count 206, MPV 8.3, Gran % 73.7, Gran # 4.3, Lymphocytes % 14.7, Monocytes % 7.1, Eosinophils % 3.7, Basophils % 0.9, Lymphocytes # 0.9, Monocytes # 0.4, Eosinophils # 0.2, Basophils # 0.1, PUBS MCHC 31.6 L, MCH 29.8 Current Medication Orders Sig/Harshad Start time Last Medication Dose Route Stop Time Status Admin Sodium Chloride 10 ML PRN PRN 09/04 2245 AC IV 09/05 2244 Orders Procedure Date/time Status 12 LEAD EKG-BESSON (INITIAL) 09/04 2244 Active ELECTROCARDIOGRAM REQUEST 09/04 2244 Active CHEST-PORTABLE 09/04 2244 Active IV SALINE LOCK 09/04 2244 Active REGISTERED ART THERAPIST 09/04 2244 Active CULTURE, BLOOD 09/04 2244 Active URINALYSIS/COMPLETE 09/04 2244 Active LACTIC ACID 09/04 2244 Complete CBC WITH AUTO DIFF 09/04 2244 Complete CARDIAC ENZYMES 09/04 2244 Complete CHEM 12 PROFILE 09/04 2244 Complete CM/EKG 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 ST/Twave chgs XRAY/CT/US XRAY/CT/US XRAY chest XR interpretation by reviewed by me Xray Results abnormal (chronic changes ) Departure Departure Time of Disposition 0133 Disposition DC Home or Self Care(routine) Clinical Impression Primary Impression: COPD exacerbation Condition STABLE Referrals Kike Knight MD (Family) Patient Instructions DI for Chronic Obstructive Pulmonary Disease Additional Instructions see pcp thursday and resume meds Discharge Counseling Counseled pt/family regarding diagnosis, test results, medications/RX, follow up needs ED Critical Care Critical Care No at 0134
[2017-09-05 01:51] VITALS: BP 177/95
--- NOTE | 2017-09-05 05:20 | RADIOLOGY REPORT PS360 ---
CHEST-PORTABLE HISTORY: Cough, weakness, current smoker C/O SOB ORDERING PHYSICIAN: Rashaad Knight MD PATIENT AGE: 87 years COMPARISON: 06/16/2017 FINDINGS: Mild cardiomegaly without failure. COPD. 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 No lobar consolidation or collapse.. No acute bony abnormalities. 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 No acute finding
== END 2017-09-05 01:54 | disposition home or self-care (01) ==
LOC: ER 22:26
PROVIDERS: Emergency Medicine
DX: J44.1 Chronic obstructive pulmonary disease with (acute) exacerbation (principal); Z72.0 Tobacco use; K21.9 Gastro-esophageal reflux disease without esophagitis; I10 Essential (primary) hypertension; E78.5 Hyperlipidemia, unspecified; Z88.0 Allergy status to penicillin